=== PATIENT | male | born 1965 | race African-American/Black ===

== ENCOUNTER 2019-10-07 04:19 | Emergency (ER) | payer MEDICAID ==
[~2019-10-07] VITALS: Ht 188 cm; Wt 100.4 kg
[2019-10-07 05:34] VITALS: BP 163/101
[2019-10-07] MEDS ORDERED: ALBUTEROL SULF 2.5 MG/0.5ML(0.5%) NEB SOLN NEB ONE (06:00)
[2019-10-07] MEDS ORDERED: IPRATROPIUM BROM 0.5 MG/2.5ML INH SOL NEB ONE (06:00)
== END 2019-10-07 06:20 | disposition home or self-care (01) ==
LOC: ER 04:19
DX: J18.1 Lobar pneumonia, unspecified organism (principal); I10 Essential (primary) hypertension
CPT/HCPCS: 71045; 94640; 99283; J7644

== ENCOUNTER 2019-10-14 18:53 | Emergency (ER) | payer MEDICAID ==
[~2019-10-14] VITALS: Ht 188 cm; Wt 100.2 kg
[2019-10-14] MEDS ORDERED: SODIUM CHLORIDE 0.9% 1,000 ML IV ONE ×2 (20:15→22:30)
[2019-10-14 21:17] LABS: Basophils # (auto) 0.1 10 ^3/uL (0-0.2); Eosinophils # (auto) 0.1 10 ^3/uL (0-0.8); Monocytes # (auto) 0.9 10 ^3/uL (0-1.3)
[2019-10-14 21:18] LABS: Basophils % (auto) 0.7 % (0.0-2.0); Hematocrit 55.1 % (41.0-53.0); Hemoglobin 18.3 g/dL (13.5-17.5); Lymphocytes # (auto) 1.6 10 ^3/uL (0.4-5.4); Lymphocytes % (auto) 16.2 % (10.0-50.0); Mean Corpuscular Hemoglobin 31.9 pg (28.0-32.0); Mean Corpuscular Hgb Conc. 33.2 g/dL (32.0-36.0); Monocytes % (auto) 8.7 % (0.0-12.0); Neutrophils # (auto) 7.4 10 ^3/uL (1.6-8.6); Neutrophils % (auto) 73.4 % (37.0-80.0); Platelet Count (auto) 298 10^3/uL (140-450); Red Blood Cells 5.74 10^6/uL (4.5-5.90); Red Cell Distribution Width 13.9 % (11.8-14.3); White Blood Cell 10.1 10^3/uL (4.4-10.8)
[2019-10-14 21:32] LABS: INR 1.05 (0.9-1.15)
[2019-10-14 21:35] LABS: Anion Gap 7 (5-15); Blood Urea Nitrogen 20 mg/dL (7-18); Calcium 9.4 mg/dL (8.5-10.1); Carbon Dioxide 26 mmol/L (21-32); Chloride 107 mmol/L (98-107); Glucose 99 mg/dL (74-106); Potassium 3.3 mmol/L (3.5-5.1); Sodium 140 mmol/L (136-145)
[2019-10-14 21:36] LABS: Lactic Acid w/Reflex 2.4 mmol/L (0.4-2.0)
[2019-10-14 21:42] LABS: Alanine Aminotransferase 29 U/L (16-61); Alkaline Phosphatase 100 U/L (45-117); Aspartate Aminotransferase 16 U/L (15-37); BUN/Creatinine Ratio 12.4; Bilirubin, Total 0.6 mg/dL (0.2-1.0); CRP High Sensitivity 0.57 mg/dL (< 0.3); Creatine Kinase IFCC 189 U/L (39-308); GFR African American 58 mL/min; GFR Non-African American 48 mL/min; Total Protein 8.1 g/dL (6.4-8.2)
[2019-10-14 23:15] VITALS: BP 151/96
[2019-10-15] MEDS ORDERED: POTASSIUM CHL 20 Meq TABLET PO ONE (00:15)
== END 2019-10-15 00:39 | disposition home or self-care (01) ==
LOC: ER 18:53
DX: J18.9 Pneumonia, unspecified organism (principal); E86.0 Dehydration; J45.909 Unspecified asthma, uncomplicated
CPT/HCPCS: 36415; 71045; 80053; 82550; 83605; 84484; 85025; 85610; 85652; 86141; 87070; 87804; 87880; 93005; 96360; 96361; 99285; J7030; 87807

== ENCOUNTER 2020-01-22 15:03 | Inpatient (IN) | payer MEDICAID ==
[~2020-01-22] VITALS: Ht 188 cm; Wt 95.8 kg
[2020-01-22] MEDS ORDERED: DOXYCYCLINE 100 MG TAB/CAP PO ONE (16:45)
[2020-01-22] MEDS ORDERED: cefTRIAXone 1GM/50ML D5W 50 ML IV ONE (16:45)
[2020-01-22] MEDS ORDERED: DexAMETHasone SOD PHOS 10MG/1ML VIAL INJ IV ONE (16:45)
[2020-01-22] MEDS ORDERED: AZITHROMYCIN 500MG/ 250ML 250 ML IV ONE (17:00)
[2020-01-22 17:01] LABS: Eosinophils # (auto) 0.1 10 ^3/uL (0-0.8); Nucleated Red Blood Cells % 0.1 %
[2020-01-22 17:03] LABS: Basophils # (auto) 0 10 ^3/uL (0-0.2); Basophils % (auto) 0.7 % (0.0-2.0); Hemoglobin 19.2 g/dL (13.5-17.5); Lymphocytes # (auto) 0.9 10 ^3/uL (0.4-5.4); Lymphocytes % (auto) 13.9 % (10.0-50.0); Mean Corpuscular Hgb Conc. 33.3 g/dL (32.0-36.0); Mean Corpuscular Volume 96.4 fL (80.0-100.0); Monocytes % (auto) 14.5 % (0.0-12.0); Neutrophils # (auto) 4.7 10 ^3/uL (1.6-8.6); Neutrophils % (auto) 69.9 % (37.0-80.0); Platelet Count (auto) 322 10^3/uL (140-450); Red Cell Distribution Width 13.9 % (11.8-14.3); White Blood Cell 6.7 10^3/uL (4.4-10.8)
[2020-01-22 17:06] LABS: Hematocrit 57.8 % (41.0-53.0)
[2020-01-22 17:16] LABS: Alanine Aminotransferase 40 U/L (16-61); Albumin 2.7 g/dL (3.4-5.0); Anion Gap 5 (5-15); Aspartate Aminotransferase 31 U/L (15-37); BUN/Creatinine Ratio 16.2; Blood Urea Nitrogen 25 mg/dL (7-18); Calcium 8.7 mg/dL (8.5-10.1); Carbon Dioxide 27 mmol/L (21-32); Chloride 104 mmol/L (98-107); GFR African American 61 mL/min; GFR Non-African American 50 mL/min; Glucose 123 mg/dL (74-106); Magnesium 2.9 mg/dL (1.6-2.6); Potassium 4.1 mmol/L (3.5-5.1); Sodium 136 mmol/L (136-145)
[2020-01-22 17:19] LABS: Alkaline Phosphatase 98 U/L (45-117); Bilirubin, Total 0.5 mg/dL (0.2-1.0)
[2020-01-22 17:26] LABS: INR 1.2 (0.9-1.15); Partial Thromboplastin Time 28.8 sec (23.64-32.05)
[2020-01-22 17:46] LABS: CRP High Sensitivity 10.9 mg/dL (< 0.3)
[2020-01-22] MEDS ORDERED: SODIUM CHLORIDE 0.9% 1,000 ML IV SCH (17:53)
[2020-01-22] MEDS ORDERED: traMADol HCL 50 MG TAB PO PRN (18:00)
[2020-01-22] MEDS ORDERED: MORPHINE SULF INJ 2 MG/ML SYRINGE 1ML IV PRN (18:00)
[2020-01-22] MEDS ORDERED: TEMAZEPAM 15 MG CAP PO PRN (18:00)
[2020-01-22] MEDS ORDERED: methylPREDNISolone SOD SUCC 40 MG/ML VL IV SCH (18:00)
[2020-01-22] MEDS ORDERED: PROMETHAZINE HCL 25 MG/ML 1ML IV PRN (18:00)
[2020-01-22] MEDS ORDERED: NITROGLYCERIN 0.4 MG SL TAB SL PRN (18:00)
[2020-01-22] MEDS ORDERED: ACETAMINOPHEN 500 MG TAB PO PRN (18:00)
[2020-01-22] MEDS ORDERED: LACTULOSE 20Gm/30ML SOLN PO PRN (18:00)
[2020-01-22] MEDS ORDERED: levoFLOXacin 500MG 100 ML IV ONE (18:30)
[2020-01-22 19:25] VITALS: BP 137/80
[2020-01-22 21:55] VITALS: BP 131/83
[2020-01-22] MEDS: ALBUTEROL SULF HFA 90MCG INH 200DOSE IN SCH ×2 (21:59→22:00)
[2020-01-22] MEDS: DexAMETHasone SOD PHOS 4 MG/1ML SDV INJ IV SCH (22:09)
[2020-01-22] MEDS: ENOXAPARIN SOD 80 MG/0.8ML SYRINGE SC SCH (22:09)
[2020-01-22] MEDS: CLINDAMYCIN 600MG IV 50 ML IV SCH (22:09)
[2020-01-22 23:23] VITALS: BP 130/87
[2020-01-23 02:40] VITALS: BP 153/91
[2020-01-23] MEDS: ALBUTEROL SULF HFA 90MCG INH 200DOSE IN SCH ×3 (06:00→22:10)
[2020-01-23] MEDS: CLINDAMYCIN 600MG IV 50 ML IV SCH ×2 (06:10→14:20)
[2020-01-23 06:13] VITALS: BP 135/91
[2020-01-23 06:48] LABS: Urine Bacteria FEW /hpf (None Seen); Urine Blood Negative /uL (Negative); Urine Mucus FEW (None Seen); Urine WBC 1 /hpf (0 - 3)
[2020-01-23 07:19] LABS: Basophils # (auto) 0 10 ^3/uL (0-0.2); Eosinophils # (auto) 0 10 ^3/uL (0-0.8); Eosinophils % (auto) 0.1 % (0.0-7.0); Lymphocytes # (auto) 0.6 10 ^3/uL (0.4-5.4); White Blood Cell 5.9 10^3/uL (4.4-10.8)
[2020-01-23 07:22] LABS: Basophils % (auto) 0.3 % (0.0-2.0); Hematocrit 55.8 % (41.0-53.0); Hemoglobin 18.7 g/dL (13.5-17.5); Lymphocytes % (auto) 10.7 % (10.0-50.0); Mean Corpuscular Hemoglobin 32.1 pg (28.0-32.0); Mean Corpuscular Hgb Conc. 33.5 g/dL (32.0-36.0); Mean Corpuscular Volume 95.9 fL (80.0-100.0); Monocytes # (auto) 0.2 10 ^3/uL (0-1.3); Monocytes % (auto) 3.2 % (0.0-12.0); Neutrophils # (auto) 5.1 10 ^3/uL (1.6-8.6); Neutrophils % (auto) 85.7 % (37.0-80.0); Nucleated Red Blood Cells % 0.1 %; Platelet Count (auto) 366 10^3/uL (140-450); Red Blood Cells 5.82 10^6/uL (4.5-5.90); Red Cell Distribution Width 13.2 % (11.8-14.3)
[2020-01-23 07:36] LABS: Potassium 4.4 mmol/L (3.5-5.1)
[2020-01-23 07:48] LABS: Albumin 2.7 g/dL (3.4-5.0); BUN/Creatinine Ratio 20.1; Bilirubin, Total 0.5 mg/dL (0.2-1.0); Calcium 9.1 mg/dL (8.5-10.1); Total Protein 7.8 g/dL (6.4-8.2)
[2020-01-23 09:45] VITALS: BP_SYST 134
[2020-01-23] MEDS: ENOXAPARIN SOD 80 MG/0.8ML SYRINGE SC SCH ×2 (10:35→22:38)
[2020-01-23] MEDS: ASCORBIC ACID 1,000 MG TAB PO SCH (10:35)
[2020-01-23] MEDS: ZINC SULFATE 220mg CAP or TAB PO SCH (10:36)
[2020-01-23] MEDS: CHOLECALCIFEROL (VITD3) 1,000IU=25mCg TAB PO SCH (10:36)
[2020-01-23] MEDS: levoFLOXacin 500MG 100 ML IV SCH (10:36)
[2020-01-23] MEDS: DexAMETHasone SOD PHOS 4 MG/1ML SDV INJ IV SCH (10:37)
[2020-01-23] MEDS ORDERED: SODIUM CHLORIDE 0.9% 1,000 ML IV SCH (10:45)
[2020-01-23 13:20] VITALS: BP 134/84
[2020-01-23 15:10] VITALS: BP 144/80
[2020-01-23 16:22] VITALS: BP 127/50
[2020-01-23] MEDS: methylPREDNISolone SOD SUCC 40 MG/ML VL IV SCH (22:38)
[2020-01-24] MEDS: ALBUTEROL SULF HFA 90MCG INH 200DOSE IN SCH (06:10)
[2020-01-24 09:43] LABS: Basophils # (auto) 0.1 10 ^3/uL (0-0.2); Basophils % (auto) 0.5 % (0.0-2.0); Eosinophils # (auto) 0 10 ^3/uL (0-0.8); Hematocrit 50.2 % (41.0-53.0); Hemoglobin 16.6 g/dL (13.5-17.5); Lymphocytes # (auto) 0.7 10 ^3/uL (0.4-5.4); Lymphocytes % (auto) 4.6 % (10.0-50.0); Mean Corpuscular Hemoglobin 31.7 pg (28.0-32.0); Mean Corpuscular Hgb Conc. 33.1 g/dL (32.0-36.0); Mean Corpuscular Volume 95.8 fL (80.0-100.0); Monocytes # (auto) 0.4 10 ^3/uL (0-1.3); Monocytes % (auto) 2.7 % (0.0-12.0); Neutrophils # (auto) 14.8 10 ^3/uL (1.6-8.6); Neutrophils % (auto) 92.2 % (37.0-80.0); Platelet Count (auto) 375 10^3/uL (140-450); Red Blood Cells 5.24 10^6/uL (4.5-5.90); Red Cell Distribution Width 13.5 % (11.8-14.3); White Blood Cell 16.1 10^3/uL (4.4-10.8)
[2020-01-24 09:52] LABS: Albumin 2.4 g/dL (3.4-5.0); Calcium 8.8 mg/dL (8.5-10.1); Potassium 4.6 mmol/L (3.5-5.1)
[2020-01-24 09:55] LABS: BUN/Creatinine Ratio 20.7; Bilirubin, Total 0.4 mg/dL (0.2-1.0); Total Protein 6.7 g/dL (6.4-8.2)
[2020-01-24] MEDS: CHOLECALCIFEROL (VITD3) 1,000IU=25mCg TAB PO SCH (09:57)
[2020-01-24] MEDS: levoFLOXacin 500MG 100 ML IV SCH (09:57)
[2020-01-24] MEDS: methylPREDNISolone SOD SUCC 40 MG/ML VL IV SCH ×2 (09:57→22:17)
[2020-01-24] MEDS: ASCORBIC ACID 1,000 MG TAB PO SCH (09:57)
[2020-01-24] MEDS: ENOXAPARIN SOD 80 MG/0.8ML SYRINGE SC SCH ×2 (09:57→22:17)
[2020-01-24] MEDS: ZINC SULFATE 220mg CAP or TAB PO SCH (09:57)
[2020-01-24 15:07] LABS: Amphetamine Screen, Urine POSITIVE (NEGATIVE); Barbiturate Scree,Urine NEGATIVE (NEGATIVE); Benzodiazephine Screen, Urine NEGATIVE (NEGATIVE); Cannabinoid Screen, Urine NEGATIVE (NEGATIVE); Cocaine Screen, Urine NEGATIVE (NEGATIVE); Opiate Scree,Urine NEGATIVE (NEGATIVE); Phencyclidine Screen, Urine NEGATIVE (NEGATIVE)
[2020-01-24 15:35] LABS: Alcohol, Urine < 3.0 mg/dL (0-10)
[2020-01-24 23:53] VITALS: BP 125/78
[2020-01-25] MEDS ORDERED: IPRAAER6 IN (01:24)
[2020-01-25 07:50] LABS: Basophils # (auto) 0 10 ^3/uL (0-0.2); Basophils % (auto) 0.3 % (0.0-2.0); Eosinophils # (auto) 0.1 10 ^3/uL (0-0.8); Eosinophils % (auto) 0.4 % (0.0-7.0); Hematocrit 51.5 % (41.0-53.0); Hemoglobin 17.1 g/dL (13.5-17.5); Lymphocytes # (auto) 0.6 10 ^3/uL (0.4-5.4); Lymphocytes % (auto) 3.8 % (10.0-50.0); Mean Corpuscular Hemoglobin 32.3 pg (28.0-32.0); Mean Corpuscular Hgb Conc. 33.3 g/dL (32.0-36.0); Monocytes # (auto) 0.7 10 ^3/uL (0-1.3); Monocytes % (auto) 4.4 % (0.0-12.0); Neutrophils # (auto) 14.2 10 ^3/uL (1.6-8.6); Neutrophils % (auto) 91.1 % (37.0-80.0); Platelet Count (auto) 361 10^3/uL (140-450); Red Blood Cells 5.31 10^6/uL (4.5-5.90); Red Cell Distribution Width 13.7 % (11.8-14.3); White Blood Cell 15.6 10^3/uL (4.4-10.8)
[2020-01-25 08:08] LABS: BUN/Creatinine Ratio 24.2; Calcium 8.6 mg/dL (8.5-10.1); Potassium 5.1 mmol/L (3.5-5.1)
[2020-01-25] MEDS: ZINC SULFATE 220mg CAP or TAB PO SCH (09:36)
[2020-01-25] MEDS: ASCORBIC ACID 1,000 MG TAB PO SCH (09:36)
[2020-01-25] MEDS: methylPREDNISolone SOD SUCC 40 MG/ML VL IV SCH ×2 (10:00→22:00)
[2020-01-25] MEDS: ENOXAPARIN SOD 80 MG/0.8ML SYRINGE SC SCH ×2 (10:00→22:00)
[2020-01-25] MEDS: levoFLOXacin 500MG 100 ML IV SCH (10:00)
[2020-01-25] MEDS: NICOTINE 14 MG/24HR TOPICAL PATCH TD SCH (10:00)
[2020-01-25] MEDS: CHOLECALCIFEROL (VITD3) 1,000IU=25mCg TAB PO SCH (10:00)
[2020-01-25 16:55] VITALS: BP 157/95
[2020-01-25 17:00] VITALS: BP 157/95
[2020-01-25 22:09] VITALS: BP 151/97
[2020-01-26 05:30] VITALS: BP 145/81
[2020-01-26 09:00] VITALS: BP 140/85
[2020-01-26] MEDS: CHOLECALCIFEROL (VITD3) 1,000IU=25mCg TAB PO SCH (10:00)
[2020-01-26] MEDS: ZINC SULFATE 220mg CAP or TAB PO SCH (10:00)
[2020-01-26] MEDS: ASCORBIC ACID 1,000 MG TAB PO SCH (10:00)
[2020-01-26] MEDS: levoFLOXacin 500MG 100 ML IV SCH (11:48)
[2020-01-26] MEDS: methylPREDNISolone SOD SUCC 40 MG/ML VL IV SCH ×2 (11:49→22:30)
[2020-01-26] MEDS: ENOXAPARIN SOD 80 MG/0.8ML SYRINGE SC SCH ×2 (11:51→22:31)
[2020-01-26] MEDS: NICOTINE 14 MG/24HR TOPICAL PATCH TD SCH (11:51)
[2020-01-26 13:00] VITALS: BP 142/91
[2020-01-26 14:11] LABS: Hemoglobin 18.6 g/dL (13.5-17.5); Mean Corpuscular Volume 97.1 fL (80.0-100.0)
[2020-01-26 14:13] LABS: Mean Corpuscular Hemoglobin 31.2 pg (28.0-32.0); Mean Corpuscular Hgb Conc. 32.1 g/dL (32.0-36.0); Platelet Count (auto) 453 10^3/uL (140-450); Red Blood Cells 5.95 10^6/uL (4.5-5.90)
[2020-01-26 14:14] LABS: Hematocrit 57.8 % (41.0-53.0)
[2020-01-26 14:16] LABS: Band Neutrophils % (manual) 0; Basophils % (manual) 0 (0.0-2.0); Blast Cells 0; Eosinophils % (manual) 0 (0-7); Metamyelocytes % 0; Myelocytes % 0; Promyelocytes % 0; Reactive Lymphocytes 0
[2020-01-26 14:28] LABS: Lymphocytes % (manual) 3 (10.0-50.0); Monocytes % (manual) 3 (0-12)
[2020-01-26 14:51] LABS: BUN/Creatinine Ratio 19.1; Potassium 4.6 mmol/L (3.5-5.1)
[2020-01-26 14:52] LABS: Albumin 2.8 g/dL (3.4-5.0); Bilirubin, Total 0.3 mg/dL (0.2-1.0); Calcium 9.1 mg/dL (8.5-10.1); Total Protein 7.4 g/dL (6.4-8.2)
[2020-01-26 17:00] VITALS: BP 98/76
[2020-01-26 22:00] VITALS: BP 111/76
[2020-01-27 05:35] VITALS: BP 119/69
[2020-01-27 06:50] LABS: Hemoglobin 17.5 g/dL (13.5-17.5); Red Cell Distribution Width 13.7 % (11.8-14.3)
[2020-01-27 06:52] LABS: Hematocrit 52.4 % (41.0-53.0); Mean Corpuscular Hemoglobin 31.8 pg (28.0-32.0); Mean Corpuscular Hgb Conc. 33.5 g/dL (32.0-36.0); Platelet Count (auto) 450 10^3/uL (140-450); Red Blood Cells 5.51 10^6/uL (4.5-5.90); White Blood Cell 21.2 10^3/uL (4.4-10.8)
[2020-01-27 06:55] LABS: Band Neutrophils % (manual) 0; Basophils % (manual) 0 (0.0-2.0); Blast Cells 0; Eosinophils % (manual) 0 (0-7); Metamyelocytes % 0; Myelocytes % 0; Promyelocytes % 0; Reactive Lymphocytes 0
[2020-01-27 07:02] LABS: Potassium 4.2 mmol/L (3.5-5.1)
[2020-01-27 07:18] LABS: BUN/Creatinine Ratio 21.6; Calcium 8.9 mg/dL (8.5-10.1)
[2020-01-27 07:52] LABS: Lymphocytes % (manual) 12 (10.0-50.0); Monocytes % (manual) 4 (0-12)
[2020-01-27] MEDS ORDERED: VANCOMYCIN PER PHARMACY 0 MG IV SCH (08:45)
[2020-01-27 09:30] VITALS: BP 126/79
[2020-01-27] MEDS: ASCORBIC ACID 1,000 MG TAB PO SCH (10:00)
[2020-01-27] MEDS: ZINC SULFATE 220mg CAP or TAB PO SCH (10:00)
[2020-01-27] MEDS: levoFLOXacin 500MG 100 ML IV SCH ×2 (10:00→10:55)
[2020-01-27] MEDS: methylPREDNISolone SOD SUCC 40 MG/ML VL IV SCH ×4 (10:00→22:20)
[2020-01-27] MEDS: NICOTINE 14 MG/24HR TOPICAL PATCH TD SCH (10:56)
[2020-01-27] MEDS: ENOXAPARIN SOD 80 MG/0.8ML SYRINGE SC SCH ×2 (10:56→22:20)
[2020-01-27] MEDS: CHOLECALCIFEROL (VITD3) 1,000IU=25mCg TAB PO SCH (10:56)
[2020-01-27] MEDS ORDERED: VANCOMYCIN 1GM/250ML 250 ML IV SCH (11:00)
[2020-01-27] MEDS: VANCOMYCIN 1GM/250ML 250 ML IV SCH (16:30)
[2020-01-27 16:55] VITALS: BP 114/70
[2020-01-27 22:00] VITALS: BP 116/76
[2020-01-28 05:00] VITALS: BP 102/59
[2020-01-28] MEDS: VANCOMYCIN 1GM/250ML 250 ML IV SCH ×2 (05:19→17:39)
[2020-01-28] MEDS: ZINC SULFATE 220mg CAP or TAB PO SCH (07:29)
[2020-01-28] MEDS: ASCORBIC ACID 500 MG TAB PO SCH (07:30)
[2020-01-28 09:38] VITALS: BP 108/76
[2020-01-28] MEDS: methylPREDNISolone SOD SUCC 40 MG/ML VL IV SCH ×2 (11:05→22:38)
[2020-01-28] MEDS: ENOXAPARIN SOD 80 MG/0.8ML SYRINGE SC SCH ×2 (11:06→22:38)
[2020-01-28] MEDS: CHOLECALCIFEROL (VITD3) 1,000IU=25mCg TAB PO SCH (11:06)
[2020-01-28] MEDS: NICOTINE 14 MG/24HR TOPICAL PATCH TD SCH (11:07)
[2020-01-28 11:48] LABS: Hemoglobin 18.3 g/dL (13.5-17.5); Mean Corpuscular Hemoglobin 31.1 pg (28.0-32.0); Mean Corpuscular Hgb Conc. 32.4 g/dL (32.0-36.0); Mean Corpuscular Volume 96.1 fL (80.0-100.0); Platelet Count (auto) 466 10^3/uL (140-450); Red Blood Cells 5.88 10^6/uL (4.5-5.90); Red Cell Distribution Width 13.7 % (11.8-14.3); White Blood Cell 21.5 10^3/uL (4.4-10.8)
[2020-01-28 11:49] LABS: Band Neutrophils % (manual) 0; Basophils % (manual) 0 (0.0-2.0); Blast Cells 0; Eosinophils % (manual) 0 (0-7); Hematocrit 56.4 % (41.0-53.0); Metamyelocytes % 0; Myelocytes % 0; Promyelocytes % 0; Reactive Lymphocytes 0
[2020-01-28 11:59] LABS: Calcium 9.2 mg/dL (8.5-10.1); Potassium 4.5 mmol/L (3.5-5.1)
[2020-01-28 12:09] LABS: Lymphocytes % (manual) 7 (10.0-50.0); Monocytes % (manual) 3 (0-12)
[2020-01-28 13:00] VITALS: BP 114/65
[2020-01-28 16:29] VITALS: BP 115/69
[2020-01-28 22:10] VITALS: BP 159/75
[2020-01-29] MEDS: VANCOMYCIN 1GM/250ML 250 ML IV SCH ×2 (04:37→17:44)
[2020-01-29 05:26] VITALS: BP 123/75
[2020-01-29 06:26] LABS: Hematocrit 52.5 % (41.0-53.0); Hemoglobin 17.3 g/dL (13.5-17.5); Mean Corpuscular Hemoglobin 31.8 pg (28.0-32.0); Mean Corpuscular Hgb Conc. 32.9 g/dL (32.0-36.0); Mean Corpuscular Volume 96.9 fL (80.0-100.0); Platelet Count (auto) 445 10^3/uL (140-450); Red Blood Cells 5.42 10^6/uL (4.5-5.90); White Blood Cell 24.9 10^3/uL (4.4-10.8)
[2020-01-29 06:34] LABS: Basophils % (manual) 0 (0.0-2.0); Blast Cells 0; Eosinophils % (manual) 0 (0-7); Metamyelocytes % 0; Myelocytes % 0; Promyelocytes % 0; Reactive Lymphocytes 0
[2020-01-29 06:44] LABS: Band Neutrophils % (manual) 1; Lymphocytes % (manual) 3 (10.0-50.0); Monocytes % (manual) 5 (0-12)
[2020-01-29 08:50] VITALS: BP 140/94
[2020-01-29] MEDS: levoFLOXacin 500MG 100 ML IV SCH (09:37)
[2020-01-29] MEDS: ENOXAPARIN SOD 80 MG/0.8ML SYRINGE SC SCH ×2 (09:37→23:15)
[2020-01-29] MEDS: methylPREDNISolone SOD SUCC 40 MG/ML VL IV SCH ×2 (09:38→23:15)
[2020-01-29] MEDS: ASCORBIC ACID 500 MG TAB PO SCH (09:39)
[2020-01-29] MEDS: NICOTINE 14 MG/24HR TOPICAL PATCH TD SCH (09:39)
[2020-01-29] MEDS: CHOLECALCIFEROL (VITD3) 1,000IU=25mCg TAB PO SCH (09:40)
[2020-01-29] MEDS: ZINC SULFATE 220mg CAP or TAB PO SCH (09:40)
[2020-01-29 11:07] LABS: Albumin 2.7 g/dL (3.4-5.0); Calcium 8.7 mg/dL (8.5-10.1); Potassium 4.9 mmol/L (3.5-5.1)
[2020-01-29 11:10] LABS: BUN/Creatinine Ratio 16.5; Bilirubin, Total 0.4 mg/dL (0.2-1.0); Total Protein 6.6 g/dL (6.4-8.2)
[2020-01-29 13:00] VITALS: BP 126/99
[2020-01-29 16:48] VITALS: BP 137/74
[2020-01-29 22:14] VITALS: BP 142/82
[2020-01-30] MEDS: VANCOMYCIN 1GM/250ML 250 ML IV SCH ×2 (04:36→16:39)
[2020-01-30 05:34] VITALS: BP 110/70
[2020-01-30 09:13] VITALS: BP 143/86
[2020-01-30] MEDS: ENOXAPARIN SOD 80 MG/0.8ML SYRINGE SC SCH ×2 (10:00→21:18)
[2020-01-30] MEDS: ASCORBIC ACID 500 MG TAB PO SCH (10:00)
[2020-01-30] MEDS: methylPREDNISolone SOD SUCC 40 MG/ML VL IV SCH ×2 (10:00→21:18)
[2020-01-30] MEDS: levoFLOXacin 500MG 100 ML IV SCH (10:00)
[2020-01-30] MEDS: ZINC SULFATE 220mg CAP or TAB PO SCH (10:00)
[2020-01-30] MEDS: CHOLECALCIFEROL (VITD3) 1,000IU=25mCg TAB PO SCH (10:00)
[2020-01-30] MEDS: NICOTINE 14 MG/24HR TOPICAL PATCH TD SCH (10:00)
[2020-01-30 12:39] VITALS: BP 147/95
[2020-01-30] MEDS ORDERED: FLUCONAZOLE 200MG/100ML 100 ML IV ONE (13:30)
[2020-01-30 16:58] VITALS: BP 135/91
[2020-01-30 19:18] LABS: Hemoglobin 19.1 g/dL (13.5-17.5); Mean Corpuscular Hemoglobin 31.7 pg (28.0-32.0); Mean Corpuscular Volume 96.1 fL (80.0-100.0); Red Blood Cells 6.04 10^6/uL (4.5-5.90)
[2020-01-30 19:19] LABS: Platelet Count (auto) 513 10^3/uL (140-450); Red Cell Distribution Width 14.2 % (11.8-14.3); White Blood Cell 24.8 10^3/uL (4.4-10.8)
[2020-01-30 19:26] LABS: Calcium 9.5 mg/dL (8.5-10.1); Potassium 4.3 mmol/L (3.5-5.1)
[2020-01-30 19:28] LABS: BUN/Creatinine Ratio 18.8
[2020-01-30 19:45] LABS: Band Neutrophils % (manual) 0; Basophils % (manual) 0 (0.0-2.0); Blast Cells 0; Eosinophils % (manual) 0 (0-7); Metamyelocytes % 0; Myelocytes % 0; Promyelocytes % 0; Reactive Lymphocytes 0
[2020-01-30 21:04] LABS: Lymphocytes % (manual) 9 (10.0-50.0); Monocytes % (manual) 2 (0-12)
[2020-01-31] MEDS: VANCOMYCIN 1GM/250ML 250 ML IV SCH ×2 (04:29→18:10)
[2020-01-31 04:38] VITALS: BP 137/88
[2020-01-31 09:00] VITALS: BP 144/80
[2020-01-31] MEDS: ZINC SULFATE 220mg CAP or TAB PO SCH (10:00)
[2020-01-31] MEDS: ASCORBIC ACID 500 MG TAB PO SCH (10:00)
[2020-01-31] MEDS: NICOTINE 14 MG/24HR TOPICAL PATCH TD SCH (10:00)
[2020-01-31] MEDS: levoFLOXacin 500MG 100 ML IV SCH (10:08)
[2020-01-31] MEDS: FLUCONAZOLE 200MG/100ML 100 ML IV SCH (10:08)
[2020-01-31] MEDS: methylPREDNISolone SOD SUCC 40 MG/ML VL IV SCH ×2 (10:08→21:52)
[2020-01-31] MEDS: ENOXAPARIN SOD 80 MG/0.8ML SYRINGE SC SCH ×2 (10:08→21:52)
[2020-01-31] MEDS: CHOLECALCIFEROL (VITD3) 1,000IU=25mCg TAB PO SCH (10:09)
[2020-01-31 12:21] LABS: Hemoglobin 18.8 g/dL (13.5-17.5)
[2020-01-31 12:23] LABS: Mean Corpuscular Hemoglobin 31.4 pg (28.0-32.0); Mean Corpuscular Hgb Conc. 32.6 g/dL (32.0-36.0); Mean Corpuscular Volume 96.3 fL (80.0-100.0); Platelet Count (auto) 440 10^3/uL (140-450); Red Blood Cells 5.97 10^6/uL (4.5-5.90); Red Cell Distribution Width 14.2 % (11.8-14.3); White Blood Cell 24.3 10^3/uL (4.4-10.8)
[2020-01-31 12:31] LABS: Band Neutrophils % (manual) 0; Basophils % (manual) 0 (0.0-2.0); Blast Cells 0; Eosinophils % (manual) 0 (0-7); Hematocrit 57.5 % (41.0-53.0); Metamyelocytes % 0; Myelocytes % 0; Promyelocytes % 0; Reactive Lymphocytes 0
[2020-01-31 12:36] LABS: BUN/Creatinine Ratio 20.7; Calcium 9.7 mg/dL (8.5-10.1); Potassium 5.3 mmol/L (3.5-5.1)
[2020-01-31 13:00] VITALS: BP 134/82
[2020-01-31 13:15] LABS: Lymphocytes % (manual) 8 (10.0-50.0); Monocytes % (manual) 7 (0-12)
[2020-01-31 17:00] VITALS: BP 133/80
[2020-01-31 22:00] VITALS: BP 127/72
[2020-02-01 05:00] VITALS: BP 134/76
[2020-02-01] MEDS: VANCOMYCIN 1GM/250ML 250 ML IV SCH (05:47)
[2020-02-01 07:25] LABS: Hematocrit 55.5 % (41.0-53.0); Hemoglobin 18.1 g/dL (13.5-17.5); Mean Corpuscular Hemoglobin 31.8 pg (28.0-32.0); Mean Corpuscular Hgb Conc. 32.7 g/dL (32.0-36.0); Mean Corpuscular Volume 97.5 fL (80.0-100.0); Platelet Count (auto) 424 10^3/uL (140-450); Red Blood Cells 5.69 10^6/uL (4.5-5.90); Red Cell Distribution Width 14.4 % (11.8-14.3); White Blood Cell 23.4 10^3/uL (4.4-10.8)
[2020-02-01 07:32] LABS: Basophils % (manual) 0 (0.0-2.0); Blast Cells 0; Eosinophils % (manual) 0 (0-7); Metamyelocytes % 0; Myelocytes % 0; Promyelocytes % 0; Reactive Lymphocytes 0
[2020-02-01 08:04] LABS: Band Neutrophils % (manual) 1; Lymphocytes % (manual) 5 (10.0-50.0); Monocytes % (manual) 5 (0-12)
[2020-02-01 09:00] VITALS: BP 137/82
[2020-02-01] MEDS: ASCORBIC ACID 500 MG TAB PO SCH (10:00)
[2020-02-01] MEDS: NICOTINE 14 MG/24HR TOPICAL PATCH TD SCH (10:00)
[2020-02-01] MEDS: ZINC SULFATE 220mg CAP or TAB PO SCH (10:00)
[2020-02-01] MEDS: FLUCONAZOLE 200MG/100ML 100 ML IV SCH (10:06)
[2020-02-01] MEDS: levoFLOXacin 500MG 100 ML IV SCH (10:06)
[2020-02-01] MEDS: methylPREDNISolone SOD SUCC 40 MG/ML VL IV SCH ×2 (10:07→22:14)
[2020-02-01] MEDS: CHOLECALCIFEROL (VITD3) 1,000IU=25mCg TAB PO SCH (10:07)
[2020-02-01] MEDS: ENOXAPARIN SOD 80 MG/0.8ML SYRINGE SC SCH ×2 (10:07→21:54)
[2020-02-01 13:00] VITALS: BP_SYST 94
[2020-02-01] MEDS ORDERED: VANCOMYCIN 1GM/250ML 250 ML IV SCH ×2 (15:00→23:00)
[2020-02-01 18:26] VITALS: BP 147/82
[2020-02-01 22:07] VITALS: BP 141/91
[2020-02-02 05:22] VITALS: BP 145/101
[2020-02-02 07:01] LABS: Alanine Aminotransferase 94 U/L (16-61); Albumin 2.9 g/dL (3.4-5.0); Anion Gap 11 (5-15); BUN/Creatinine Ratio 21.1; Blood Urea Nitrogen 38 mg/dL (7-18); Calcium 8.7 mg/dL (8.5-10.1); Carbon Dioxide 22 mmol/L (21-32); Chloride 105 mmol/L (98-107); GFR African American 51 mL/min; GFR Non-African American 42 mL/min; Glucose 137 mg/dL (74-106); Potassium 4.3 mmol/L (3.5-5.1); Sodium 138 mmol/L (136-145)
[2020-02-02 07:03] LABS: Alkaline Phosphatase 77 U/L (45-117); Aspartate Aminotransferase 27 U/L (15-37); Bilirubin, Total 0.4 mg/dL (0.2-1.0); Total Protein 6.7 g/dL (6.4-8.2)
[2020-02-02 07:09] LABS: Basophils # (auto) 0.1 10 ^3/uL (0-0.2); Basophils % (auto) 0.3 % (0.0-2.0); Eosinophils # (auto) 0 10 ^3/uL (0-0.8); Hematocrit 55.2 % (41.0-53.0); Hemoglobin 18.2 g/dL (13.5-17.5); Lymphocytes # (auto) 0.8 10 ^3/uL (0.4-5.4); Lymphocytes % (auto) 3.9 % (10.0-50.0); Mean Corpuscular Hemoglobin 31.7 pg (28.0-32.0); Mean Corpuscular Hgb Conc. 32.9 g/dL (32.0-36.0); Mean Corpuscular Volume 96.4 fL (80.0-100.0); Monocytes # (auto) 0.8 10 ^3/uL (0-1.3); Monocytes % (auto) 3.8 % (0.0-12.0); Neutrophils # (auto) 18.4 10 ^3/uL (1.6-8.6); Platelet Count (auto) 379 10^3/uL (140-450); Red Blood Cells 5.73 10^6/uL (4.5-5.90); Red Cell Distribution Width 14.2 % (11.8-14.3)
[2020-02-02 09:00] VITALS: BP 134/85
[2020-02-02] MEDS: ASCORBIC ACID 500 MG TAB PO SCH (09:47)
[2020-02-02] MEDS: NICOTINE 14 MG/24HR TOPICAL PATCH TD SCH (09:48)
[2020-02-02] MEDS: ZINC SULFATE 220mg CAP or TAB PO SCH (09:48)
[2020-02-02] MEDS: ENOXAPARIN SOD 80 MG/0.8ML SYRINGE SC SCH (10:00)
[2020-02-02] MEDS ORDERED: METOPROLOL TARTRATE 25 MG TAB PO SCH (10:00)
[2020-02-02] MEDS: FLUCONAZOLE 200MG/100ML 100 ML IV SCH (10:14)
[2020-02-02] MEDS: levoFLOXacin 500MG 100 ML IV SCH (10:14)
[2020-02-02] MEDS: methylPREDNISolone SOD SUCC 40 MG/ML VL IV SCH (10:15)
[2020-02-02] MEDS: CHOLECALCIFEROL (VITD3) 1,000IU=25mCg TAB PO SCH (10:15)
[2020-02-02 13:00] VITALS: BP 135/84
[2020-02-02] MEDS ORDERED: VANCOMYCIN 1GM/250ML 250 ML IV SCH (18:00)
== END 2020-02-02 19:14 | disposition home health service (06) | DRG 139 ==
LOC: ER 15:03 → TELE 15:04 → TELE-WESTW 01-25 17:03
PROVIDERS: ADMIT Internal Medicine; ATTEND Internal Medicine
PROC: 5A09357 Assistance with Respiratory Ventilation, Less than 24 Consecutive Hours, Continuous Positive Airway Pressure (ICD-10-PCS; principal; 2020-01-23)
PROC: 5A09357 Assistance with Respiratory Ventilation, Less than 24 Consecutive Hours, Continuous Positive Airway Pressure (ICD-10-PCS; 2020-01-24)
DX: J18.1 Lobar pneumonia, unspecified organism (principal); J96.01 Acute respiratory failure with hypoxia; I10 Essential (primary) hypertension; E86.0 Dehydration; J98.11 Atelectasis; F17.200 Nicotine dependence, unspecified, uncomplicated; J44.9 Chronic obstructive pulmonary disease, unspecified; F15.10 Other stimulant abuse, uncomplicated; N17.9 Acute kidney failure, unspecified; E44.0 Moderate protein-calorie malnutrition; E66.01 Morbid (severe) obesity due to excess calories; Z68.27 Body mass index [BMI] 27.0-27.9, adult; Z71.6 Tobacco abuse counseling; Z20.828 Contact with and (suspected) exposure to other viral communicable diseases
CPT/HCPCS: 36415; 36600; 71045; 71046; 71250; 80048; 80053; 80202; 80307; 81001; 82728; 82805; 83036; 83615; 83735; 83880; 84439; 84443; 84484; 85007; 85025; 85027; 85610; 85730; 86141; 86703; 86738; 87040; 87070; 87081; 87205; 87278; 93005; 94640; 94660; 96365; 96375; 99291; G0378; J0696; J1100; J1450; J1956; J3490

== ENCOUNTER 2020-02-04 00:54 | Inpatient (IN) | payer MEDICAID ==
[~2020-02-04] VITALS: Ht 185.4 cm; Wt 96.0 kg
[2020-02-04] VITALS (9 sets, daily range): BP systolic 97–144; BP diastolic 54–82
[~2020-02-04 00:54] MED LIST: IPRAAER6 IN
[2020-02-04] MEDS ORDERED: IPRATROPIUM BROM 0.5 MG/2.5ML INH SOL NEB ONE (01:15)
[2020-02-04] MEDS ORDERED: ALBUTEROL SULF 2.5 MG/0.5ML(0.5%) NEB SOLN NEB SCH (01:15)
[2020-02-04] MEDS ORDERED: levoFLOXacin 750MG 150 ML IV ONE (01:45)
[2020-02-04 02:54] LABS: Lactic Acid w/Reflex 2.4 mmol/L (0.4-2.0)
[2020-02-04 03:21] LABS: Hematocrit 53.9 % (41.0-53.0); Red Cell Distribution Width 14.3 % (11.8-14.3); White Blood Cell 17.5 10^3/uL (4.4-10.8)
[2020-02-04 03:22] LABS: Hemoglobin 17.5 g/dL (13.5-17.5); Mean Corpuscular Hemoglobin 31.3 pg (28.0-32.0); Mean Corpuscular Hgb Conc. 32.4 g/dL (32.0-36.0); Mean Corpuscular Volume 96.7 fL (80.0-100.0); Platelet Count (auto) 334 10^3/uL (140-450); Red Blood Cells 5.58 10^6/uL (4.5-5.90)
[2020-02-04 03:31] LABS: Basophils % (manual) 0 (0.0-2.0); Blast Cells 0; Eosinophils % (manual) 0 (0-7); Metamyelocytes % 0; Myelocytes % 0; Promyelocytes % 0; Reactive Lymphocytes 0
[2020-02-04 03:43] LABS: Albumin 2.4 g/dL (3.4-5.0); Anion Gap 9 (5-15); BUN/Creatinine Ratio 19.9; Blood Urea Nitrogen 30 mg/dL (7-18); Carbon Dioxide 23 mmol/L (21-32); Chloride 107 mmol/L (98-107); GFR African American 62 mL/min; GFR Non-African American 51 mL/min; Glucose 106 mg/dL (74-106); Potassium 4.1 mmol/L (3.5-5.1); Sodium 139 mmol/L (136-145)
[2020-02-04 03:48] LABS: Alanine Aminotransferase 196 U/L (16-61); Alkaline Phosphatase 59 U/L (45-117); Aspartate Aminotransferase 68 U/L (15-37); Total Protein 5.5 g/dL (6.4-8.2)
[2020-02-04 04:09] LABS: Band Neutrophils % (manual) 15; Lymphocytes % (manual) 12 (10.0-50.0); Monocytes % (manual) 2 (0-12)
[2020-02-04] MEDS ORDERED: NITROGLYCERIN 0.4 MG SL TAB SL PRN (05:00)
[2020-02-04] MEDS ORDERED: ACETAMINOPHEN 325 MG TAB PO PRN (05:00)
[2020-02-04] MEDS ORDERED: MORPHINE SULF INJ 2 MG/ML SYRINGE 1ML IV PRN (05:00)
[2020-02-04] MEDS ORDERED: SODIUM CHLORIDE 0.9% 1,000 ML IV ONE (05:00)
[2020-02-04] MEDS ORDERED: ALBUTEROL SULF 2.5 MG/0.5ML(0.5%) NEB SOLN NEB PRN (05:00)
[2020-02-04] MEDS ORDERED: IPRATROPIUM BROM 0.5 MG/2.5ML INH SOL NEB PRN (05:00)
[2020-02-04] MEDS: cefTRIAXone 1GM/50ML D5W 50 ML IV SCH (10:46)
[2020-02-04] MEDS: ENOXAPARIN SOD 40 MG/0.4 ML SYRINGE SC SCH (10:47)
[2020-02-04] MEDS: AZITHROMYCIN 500MG/ 250ML 250 ML IV SCH (10:47)
[2020-02-04] MEDS: METOPROLOL TARTRATE 25 MG TAB PO SCH ×2 (10:49→20:52)
[2020-02-04] MEDS: NICOTINE 14 MG/24HR TOPICAL PATCH TD SCH (11:09)
[2020-02-04] MEDS ORDERED: FLUC200T50 PO (12:40)
[2020-02-04] MEDS ORDERED: LEVO-28 PO (12:40)
[2020-02-04] MEDS ORDERED: MET25T PO (12:40)
[2020-02-04] MEDS ORDERED: ALBU0.084 NEB (12:47)
[2020-02-04] MEDS ORDERED: ALBUAER3 IN (12:47)
[2020-02-04] MEDS ORDERED: SODIUM CHLORIDE 0.9% 2,000 ML IV ONE (13:30)
[2020-02-04] MEDS ORDERED: VANCOMYCIN PER PHARMACY 0 MG IV SCH (13:30)
[2020-02-04] MEDS: SODIUM CHLORIDE 0.9% 1,000 ML IV SCH ×2 (15:24→20:54)
[2020-02-04] MEDS: VANCOMYCIN 1GM/250ML 250 ML IV SCH (15:24)
[2020-02-04] MEDS: ALBUTEROL SULF 2.5 MG/0.5ML(0.5%) NEB SOLN NEB SCH ×2 (19:51→23:05)
[2020-02-04] MEDS: IPRATROPIUM BROM 0.5 MG/2.5ML INH SOL NEB SCH ×2 (19:51→23:05)
[2020-02-04 20:10] LABS: Lactic Acid w/Reflex 3.4 mmol/L (0.4-2.0)
[2020-02-04] MEDS: methylPREDNISolone SOD SUCC 40 MG/ML VL IV SCH (20:52)
[2020-02-04] MEDS: TEMAZEPAM 15 MG CAP PO PRN (21:10)
[2020-02-05] VITALS (8 sets, daily range): BP systolic 112–151; BP diastolic 66–92
[2020-02-05 01:16] LABS: Alcohol, Urine < 3.0 mg/dL (0-10); Amphetamine Screen, Urine NEGATIVE (NEGATIVE); Barbiturate Scree,Urine NEGATIVE (NEGATIVE); Benzodiazephine Screen, Urine NEGATIVE (NEGATIVE); Cannabinoid Screen, Urine NEGATIVE (NEGATIVE); Cocaine Screen, Urine NEGATIVE (NEGATIVE); Opiate Scree,Urine NEGATIVE (NEGATIVE); Phencyclidine Screen, Urine NEGATIVE (NEGATIVE)
[2020-02-05] MEDS: VANCOMYCIN 1GM/250ML 250 ML IV SCH ×2 (01:48→14:07)
[2020-02-05] MEDS: ALBUTEROL SULF 2.5 MG/0.5ML(0.5%) NEB SOLN NEB SCH ×5 (02:00→21:57)
[2020-02-05] MEDS: IPRATROPIUM BROM 0.5 MG/2.5ML INH SOL NEB SCH ×5 (02:00→21:57)
[2020-02-05 03:54] LABS: Basophils # (auto) 0 10 ^3/uL (0-0.2); Basophils % (auto) 0.2 % (0.0-2.0); Eosinophils # (auto) 0 10 ^3/uL (0-0.8); Eosinophils % (auto) 0.1 % (0.0-7.0); Hematocrit 47.5 % (41.0-53.0); Hemoglobin 15.5 g/dL (13.5-17.5); Lymphocytes # (auto) 0.2 10 ^3/uL (0.4-5.4); Lymphocytes % (auto) 2.3 % (10.0-50.0); Mean Corpuscular Hemoglobin 32.1 pg (28.0-32.0); Mean Corpuscular Hgb Conc. 32.7 g/dL (32.0-36.0); Mean Corpuscular Volume 98.1 fL (80.0-100.0); Monocytes # (auto) 0.2 10 ^3/uL (0-1.3); Monocytes % (auto) 1.5 % (0.0-12.0); Neutrophils # (auto) 9.8 10 ^3/uL (1.6-8.6); Neutrophils % (auto) 95.9 % (37.0-80.0); Nucleated Red Blood Cells % 0.1 %; Platelet Count (auto) 232 10^3/uL (140-450); Red Blood Cells 4.84 10^6/uL (4.5-5.90); Red Cell Distribution Width 14.4 % (11.8-14.3); White Blood Cell 10.2 10^3/uL (4.4-10.8)
[2020-02-05 04:12] LABS: BUN/Creatinine Ratio 17.9; Calcium 8.4 mg/dL (8.5-10.1); Potassium 4.3 mmol/L (3.5-5.1)
[2020-02-05] MEDS: methylPREDNISolone SOD SUCC 40 MG/ML VL IV SCH ×3 (05:17→21:30)
[2020-02-05] MEDS: SODIUM CHLORIDE 0.9% 1,000 ML IV SCH ×4 (05:17→18:30)
[2020-02-05] MEDS: cefTRIAXone 1GM/50ML D5W 50 ML IV SCH (09:16)
[2020-02-05] MEDS: AZITHROMYCIN 500MG/ 250ML 250 ML IV SCH (10:38)
[2020-02-05] MEDS: ENOXAPARIN SOD 40 MG/0.4 ML SYRINGE SC SCH (10:38)
[2020-02-05] MEDS: METOPROLOL TARTRATE 25 MG TAB PO SCH ×2 (10:40→21:34)
[2020-02-05] MEDS: NICOTINE 14 MG/24HR TOPICAL PATCH TD SCH (11:21)
[2020-02-05] MEDS: TEMAZEPAM 15 MG CAP PO PRN (21:36)
[2020-02-06] VITALS (8 sets, daily range): BP systolic 119–140; BP diastolic 49–87
[2020-02-06] MEDS: ALBUTEROL SULF 2.5 MG/0.5ML(0.5%) NEB SOLN NEB SCH ×6 (01:46→22:21)
[2020-02-06] MEDS: IPRATROPIUM BROM 0.5 MG/2.5ML INH SOL NEB SCH ×6 (01:46→22:21)
[2020-02-06] MEDS: VANCOMYCIN 1GM/250ML 250 ML IV SCH ×3 (02:55→23:35)
[2020-02-06] MEDS: methylPREDNISolone SOD SUCC 40 MG/ML VL IV SCH ×3 (05:32→22:18)
[2020-02-06 05:39] LABS: Basophils # (auto) 0 10 ^3/uL (0-0.2); Basophils % (auto) 0.1 % (0.0-2.0); Eosinophils # (auto) 0 10 ^3/uL (0-0.8); Eosinophils % (auto) 0.1 % (0.0-7.0); Hematocrit 47.1 % (41.0-53.0); Hemoglobin 15.4 g/dL (13.5-17.5); Lymphocytes # (auto) 0.3 10 ^3/uL (0.4-5.4); Lymphocytes % (auto) 1.4 % (10.0-50.0); Mean Corpuscular Hemoglobin 31.5 pg (28.0-32.0); Mean Corpuscular Hgb Conc. 32.7 g/dL (32.0-36.0); Mean Corpuscular Volume 96.2 fL (80.0-100.0); Monocytes # (auto) 0.8 10 ^3/uL (0-1.3); Monocytes % (auto) 3.3 % (0.0-12.0); Neutrophils # (auto) 22.2 10 ^3/uL (1.6-8.6); Neutrophils % (auto) 95.1 % (37.0-80.0); Platelet Count (auto) 294 10^3/uL (140-450); Red Blood Cells 4.89 10^6/uL (4.5-5.90); White Blood Cell 23.3 10^3/uL (4.4-10.8)
[2020-02-06 05:58] LABS: Albumin 2.3 g/dL (3.4-5.0); BUN/Creatinine Ratio 21.1; Calcium 8.7 mg/dL (8.5-10.1); Potassium 4.1 mmol/L (3.5-5.1)
[2020-02-06 06:01] LABS: Bilirubin, Total 0.3 mg/dL (0.2-1.0); Total Protein 5.9 g/dL (6.4-8.2)
[2020-02-06] MEDS: SODIUM CHLORIDE 0.9% 1,000 ML IV SCH ×3 (06:44→23:35)
[2020-02-06] MEDS: cefTRIAXone 1GM/50ML D5W 50 ML IV SCH (09:15)
[2020-02-06] MEDS: METOPROLOL TARTRATE 25 MG TAB PO SCH ×2 (12:58→23:47)
[2020-02-06] MEDS: AZITHROMYCIN 500MG/ 250ML 250 ML IV SCH (12:59)
[2020-02-06] MEDS: NICOTINE 14 MG/24HR TOPICAL PATCH TD SCH (12:59)
[2020-02-06] MEDS: ENOXAPARIN SOD 40 MG/0.4 ML SYRINGE SC SCH (12:59)
[2020-02-07] VITALS (13 sets, daily range): BP systolic 127–162; BP diastolic 69–92
[2020-02-07] MEDS: IPRATROPIUM BROM 0.5 MG/2.5ML INH SOL NEB SCH ×6 (02:11→22:45)
[2020-02-07] MEDS: ALBUTEROL SULF 2.5 MG/0.5ML(0.5%) NEB SOLN NEB SCH ×6 (02:11→22:45)
[2020-02-07] MEDS: VANCOMYCIN 1GM/250ML 250 ML IV SCH ×4 (06:16→23:17)
[2020-02-07] MEDS: methylPREDNISolone SOD SUCC 40 MG/ML VL IV SCH ×3 (06:16→23:16)
[2020-02-07 06:18] LABS: Basophils # (auto) 0.1 10 ^3/uL (0-0.2); Basophils % (auto) 0.4 % (0.0-2.0); Eosinophils # (auto) 0 10 ^3/uL (0-0.8); Hematocrit 45.7 % (41.0-53.0); Lymphocytes # (auto) 0.3 10 ^3/uL (0.4-5.4); Lymphocytes % (auto) 1.4 % (10.0-50.0); Mean Corpuscular Hemoglobin 31.3 pg (28.0-32.0); Mean Corpuscular Hgb Conc. 32.8 g/dL (32.0-36.0); Mean Corpuscular Volume 95.5 fL (80.0-100.0); Monocytes % (auto) 4.1 % (0.0-12.0); Neutrophils # (auto) 22.2 10 ^3/uL (1.6-8.6); Neutrophils % (auto) 94.1 % (37.0-80.0); Platelet Count (auto) 317 10^3/uL (140-450); Red Blood Cells 4.79 10^6/uL (4.5-5.90); Red Cell Distribution Width 14.4 % (11.8-14.3); White Blood Cell 23.6 10^3/uL (4.4-10.8)
[2020-02-07 06:38] LABS: Potassium 4.1 mmol/L (3.5-5.1)
[2020-02-07 06:45] LABS: Albumin 2.2 g/dL (3.4-5.0); BUN/Creatinine Ratio 20.2; Bilirubin, Total 0.3 mg/dL (0.2-1.0); Calcium 8.5 mg/dL (8.5-10.1); Total Protein 5.6 g/dL (6.4-8.2)
[2020-02-07] MEDS: ENOXAPARIN SOD 40 MG/0.4 ML SYRINGE SC SCH (09:42)
[2020-02-07] MEDS: METOPROLOL TARTRATE 25 MG TAB PO SCH ×2 (09:42→23:16)
[2020-02-07] MEDS: cefTRIAXone 1GM/50ML D5W 50 ML IV SCH (09:42)
[2020-02-07] MEDS: NICOTINE 14 MG/24HR TOPICAL PATCH TD SCH (13:00)
[2020-02-07] MEDS: AZITHROMYCIN 500MG/ 250ML 250 ML IV SCH (13:00)
[2020-02-07] MEDS: SODIUM CHLORIDE 0.9% 1,000 ML IV SCH ×2 (14:07→23:18)
[2020-02-08] VITALS (10 sets, daily range): BP systolic 132–156; BP diastolic 76–89
[2020-02-08] MEDS: IPRATROPIUM BROM 0.5 MG/2.5ML INH SOL NEB SCH ×7 (02:00→21:36)
[2020-02-08] MEDS: ALBUTEROL SULF 2.5 MG/0.5ML(0.5%) NEB SOLN NEB SCH ×7 (02:00→21:36)
[2020-02-08] MEDS: VANCOMYCIN 1GM/250ML 250 ML IV SCH ×4 (05:00→23:54)
[2020-02-08] MEDS: ONDANSETRON HCL 4 MG/2 ML VIAL IV PRN (05:46)
[2020-02-08 07:21] LABS: Basophils # (auto) 0 10 ^3/uL (0-0.2); Basophils % (auto) 0.1 % (0.0-2.0); Eosinophils # (auto) 0.1 10 ^3/uL (0-0.8); Eosinophils % (auto) 0.3 % (0.0-7.0); Hematocrit 45.7 % (41.0-53.0); Hemoglobin 15.1 g/dL (13.5-17.5); Lymphocytes # (auto) 0.8 10 ^3/uL (0.4-5.4); Lymphocytes % (auto) 3.3 % (10.0-50.0); Mean Corpuscular Hemoglobin 31.4 pg (28.0-32.0); Mean Corpuscular Volume 95.4 fL (80.0-100.0); Monocytes # (auto) 1.3 10 ^3/uL (0-1.3); Monocytes % (auto) 5.3 % (0.0-12.0); Neutrophils # (auto) 22.7 10 ^3/uL (1.6-8.6); Nucleated Red Blood Cells % 0.1 %; Platelet Count (auto) 337 10^3/uL (140-450); Red Blood Cells 4.79 10^6/uL (4.5-5.90); Red Cell Distribution Width 14.3 % (11.8-14.3); White Blood Cell 24.9 10^3/uL (4.4-10.8)
[2020-02-08 07:52] LABS: Albumin 2.2 g/dL (3.4-5.0); BUN/Creatinine Ratio 21.8; Calcium 8.2 mg/dL (8.5-10.1); Potassium 4.2 mmol/L (3.5-5.1)
[2020-02-08 07:54] LABS: Bilirubin, Total 0.3 mg/dL (0.2-1.0); Total Protein 5.5 g/dL (6.4-8.2)
[2020-02-08] MEDS: cefTRIAXone 1GM/50ML D5W 50 ML IV SCH (08:21)
[2020-02-08] MEDS: SODIUM CHLORIDE 0.9% 1,000 ML IV SCH ×2 (10:00→23:45)
[2020-02-08] MEDS: METOPROLOL TARTRATE 25 MG TAB PO SCH ×2 (10:00→23:53)
[2020-02-08] MEDS: methylPREDNISolone SOD SUCC 40 MG/ML VL IV SCH ×2 (10:36→23:45)
[2020-02-08] MEDS: ENOXAPARIN SOD 40 MG/0.4 ML SYRINGE SC SCH (10:36)
[2020-02-08] MEDS: AZITHROMYCIN 500MG/ 250ML 250 ML IV SCH (10:37)
[2020-02-08] MEDS: NICOTINE 14 MG/24HR TOPICAL PATCH TD SCH (10:37)
[2020-02-09] VITALS (7 sets, daily range): BP systolic 124–150; BP diastolic 62–91
[2020-02-09] MEDS: ALBUTEROL SULF 2.5 MG/0.5ML(0.5%) NEB SOLN NEB SCH ×6 (02:26→22:54)
[2020-02-09] MEDS: IPRATROPIUM BROM 0.5 MG/2.5ML INH SOL NEB SCH ×6 (02:27→22:54)
[2020-02-09 05:46] LABS: Hemoglobin 15.5 g/dL (13.5-17.5); Mean Corpuscular Hemoglobin 31.6 pg (28.0-32.0); Platelet Count (auto) 306 10^3/uL (140-450); Red Cell Distribution Width 14.3 % (11.8-14.3); White Blood Cell 28.3 10^3/uL (4.4-10.8)
[2020-02-09 05:51] LABS: Basophils % (manual) 0 (0.0-2.0); Blast Cells 0; Eosinophils % (manual) 0 (0-7); Myelocytes % 0; Promyelocytes % 0; Reactive Lymphocytes 0
[2020-02-09] MEDS: SODIUM CHLORIDE 0.9% 1,000 ML IV SCH ×3 (06:00→23:24)
[2020-02-09 06:04] LABS: Albumin 2.4 g/dL (3.4-5.0); BUN/Creatinine Ratio 19.4; Calcium 8.7 mg/dL (8.5-10.1); Potassium 4.4 mmol/L (3.5-5.1)
[2020-02-09 06:07] LABS: Bilirubin, Total 0.3 mg/dL (0.2-1.0); Total Protein 5.8 g/dL (6.4-8.2)
[2020-02-09 06:34] LABS: Band Neutrophils % (manual) 1; Lymphocytes % (manual) 1 (10.0-50.0); Metamyelocytes % 1; Monocytes % (manual) 7 (0-12)
[2020-02-09] MEDS: VANCOMYCIN 1GM/250ML 250 ML IV SCH ×2 (09:00→16:15)
[2020-02-09] MEDS: methylPREDNISolone SOD SUCC 40 MG/ML VL IV SCH ×2 (09:34→22:00)
[2020-02-09] MEDS: ENOXAPARIN SOD 40 MG/0.4 ML SYRINGE SC SCH (09:35)
[2020-02-09] MEDS: METOPROLOL TARTRATE 25 MG TAB PO SCH ×2 (09:35→22:00)
[2020-02-09] MEDS: NICOTINE 14 MG/24HR TOPICAL PATCH TD SCH (09:36)
[2020-02-09] MEDS: cefTRIAXone 1GM/50ML D5W 50 ML IV SCH (09:38)
[2020-02-09] MEDS: AZITHROMYCIN 500MG/ 250ML 250 ML IV SCH (10:00)
[2020-02-10] VITALS (7 sets, daily range): BP systolic 141–153; BP diastolic 69–89
[2020-02-10] MEDS: VANCOMYCIN 1GM/250ML 250 ML IV SCH ×3 (00:38→16:03)
[2020-02-10] MEDS: ALBUTEROL SULF 2.5 MG/0.5ML(0.5%) NEB SOLN NEB SCH ×6 (02:00→23:09)
[2020-02-10] MEDS: IPRATROPIUM BROM 0.5 MG/2.5ML INH SOL NEB SCH ×6 (02:00→23:09)
[2020-02-10 06:38] LABS: Mean Corpuscular Hemoglobin 31.4 pg (28.0-32.0); Mean Corpuscular Hgb Conc. 32.7 g/dL (32.0-36.0); Mean Corpuscular Volume 95.9 fL (80.0-100.0); Platelet Count (auto) 304 10^3/uL (140-450); Red Cell Distribution Width 14.2 % (11.8-14.3); White Blood Cell 28.4 10^3/uL (4.4-10.8)
[2020-02-10 06:42] LABS: Band Neutrophils % (manual) 0; Basophils % (manual) 0 (0.0-2.0); Blast Cells 0; Eosinophils % (manual) 0 (0-7); Promyelocytes % 0; Reactive Lymphocytes 0
[2020-02-10 06:58] LABS: Calcium 8.7 mg/dL (8.5-10.1); Potassium 4.7 mmol/L (3.5-5.1)
[2020-02-10 07:00] LABS: BUN/Creatinine Ratio 22.3
[2020-02-10 08:03] LABS: Lymphocytes % (manual) 7 (10.0-50.0); Metamyelocytes % 1; Monocytes % (manual) 7 (0-12); Myelocytes % 2
[2020-02-10] MEDS ORDERED: DEXTROSE (50%) 50ML SYRG IV PRN (09:30)
[2020-02-10] MEDS: cefTRIAXone 1GM/50ML D5W 50 ML IV SCH (10:54)
[2020-02-10] MEDS: ENOXAPARIN SOD 40 MG/0.4 ML SYRINGE SC SCH (10:55)
[2020-02-10] MEDS: METOPROLOL TARTRATE 25 MG TAB PO SCH ×2 (10:55→23:28)
[2020-02-10] MEDS: methylPREDNISolone SOD SUCC 40 MG/ML VL IV SCH ×2 (10:55→23:28)
[2020-02-10] MEDS: NICOTINE 14 MG/24HR TOPICAL PATCH TD SCH (11:05)
[2020-02-10] MEDS: AZITHROMYCIN 500MG/ 250ML 250 ML IV SCH (11:48)
[2020-02-10] MEDS: SODIUM CHLORIDE 0.9% 1,000 ML IV SCH (12:05)
[2020-02-10] MEDS: ACCU-CHEK COMFORT CURVE STRIP VI SCH ×3 (12:05→22:00)
[2020-02-10] MEDS: InsuLIN REG 1unit/0.01ml Soln (100units/ml) SC SCH ×3 (12:05→18:02)
[2020-02-10] MEDS ORDERED: FUROSEMIDE 20 MG/2 ML VIAL IV ONE (16:45)
[2020-02-11] VITALS: BP 146/87
[2020-02-11] MEDS: VANCOMYCIN 1GM/250ML 250 ML IV SCH ×3 (00:18→17:58)
[2020-02-11] MEDS: ALBUTEROL SULF 2.5 MG/0.5ML(0.5%) NEB SOLN NEB SCH ×6 (02:34→22:55)
[2020-02-11] MEDS: IPRATROPIUM BROM 0.5 MG/2.5ML INH SOL NEB SCH ×6 (02:34→22:56)
[2020-02-11] MEDS: SODIUM CHLORIDE 0.9% 1,000 ML IV SCH (03:52)
[2020-02-11 04:00] VITALS: BP 136/89
[2020-02-11 05:00] LABS: Hematocrit 48.4 % (41.0-53.0); Hemoglobin 15.8 g/dL (13.5-17.5); Mean Corpuscular Hgb Conc. 32.7 g/dL (32.0-36.0); Mean Corpuscular Volume 94.9 fL (80.0-100.0); Platelet Count (auto) 294 10^3/uL (140-450); Red Cell Distribution Width 14.5 % (11.8-14.3); White Blood Cell 25.9 10^3/uL (4.4-10.8)
[2020-02-11 05:27] LABS: Basophils % (manual) 0 (0.0-2.0); Blast Cells 0; Eosinophils % (manual) 0 (0-7); Metamyelocytes % 0; Myelocytes % 0; Promyelocytes % 0; Reactive Lymphocytes 0
[2020-02-11] MEDS: InsuLIN REG 1unit/0.01ml Soln (100units/ml) SC SCH ×4 (06:54→22:55)
[2020-02-11] MEDS: ACCU-CHEK COMFORT CURVE STRIP VI SCH ×4 (07:00→22:54)
[2020-02-11 08:00] VITALS: BP 132/85
[2020-02-11 08:29] LABS: Band Neutrophils % (manual) 2; Lymphocytes % (manual) 8 (10.0-50.0); Monocytes % (manual) 7 (0-12)
[2020-02-11] MEDS ORDERED: LABETALOL HCL 5 MG/ML 4ML SYRINGE IV PRN (09:15)
[2020-02-11] MEDS: METOPROLOL TARTRATE 25 MG TAB PO SCH ×3 (10:00→22:54)
[2020-02-11] MEDS: cefTRIAXone 1GM/50ML D5W 50 ML IV SCH (11:35)
[2020-02-11] MEDS: AZITHROMYCIN 500MG/ 250ML 250 ML IV SCH (11:38)
[2020-02-11] MEDS: methylPREDNISolone SOD SUCC 40 MG/ML VL IV SCH ×2 (11:38→22:53)
[2020-02-11] MEDS: ENOXAPARIN SOD 40 MG/0.4 ML SYRINGE SC SCH (11:39)
[2020-02-11] MEDS: NICOTINE 14 MG/24HR TOPICAL PATCH TD SCH (11:39)
[2020-02-11 11:50] VITALS: BP 151/94
[2020-02-11 15:39] VITALS: BP 120/68
[2020-02-11 20:00] VITALS: BP 121/68
[2020-02-12] VITALS: BP 148/84
[2020-02-12] MEDS: ALBUTEROL SULF 2.5 MG/0.5ML(0.5%) NEB SOLN NEB SCH ×6 (02:29→22:57)
[2020-02-12] MEDS: IPRATROPIUM BROM 0.5 MG/2.5ML INH SOL NEB SCH ×6 (02:29→22:57)
[2020-02-12 03:24] LABS: Hemoglobin 16.6 g/dL (13.5-17.5); Mean Corpuscular Hemoglobin 31.2 pg (28.0-32.0); Mean Corpuscular Hgb Conc. 32.6 g/dL (32.0-36.0); Mean Corpuscular Volume 95.7 fL (80.0-100.0); Platelet Count (auto) 323 10^3/uL (140-450); Red Blood Cells 5.33 10^6/uL (4.5-5.90); Red Cell Distribution Width 14.8 % (11.8-14.3); White Blood Cell 28.4 10^3/uL (4.4-10.8)
[2020-02-12 03:33] LABS: Basophils % (manual) 0 (0.0-2.0); Blast Cells 0; Eosinophils % (manual) 0 (0-7); Metamyelocytes % 0; Myelocytes % 0; Promyelocytes % 0; Reactive Lymphocytes 0
[2020-02-12 03:46] VITALS: BP 162/91
[2020-02-12 03:50] LABS: Albumin 2.9 g/dL (3.4-5.0); BUN/Creatinine Ratio 19.6; Calcium 9.4 mg/dL (8.5-10.1); Potassium 4.6 mmol/L (3.5-5.1)
[2020-02-12 04:01] LABS: Bilirubin, Total 0.3 mg/dL (0.2-1.0); Total Protein 6.7 g/dL (6.4-8.2)
[2020-02-12 04:33] LABS: Band Neutrophils % (manual) 2; Lymphocytes % (manual) 8 (10.0-50.0); Monocytes % (manual) 5 (0-12)
[2020-02-12] MEDS: InsuLIN REG 1unit/0.01ml Soln (100units/ml) SC SCH ×4 (07:00→21:26)
[2020-02-12] MEDS: ACCU-CHEK COMFORT CURVE STRIP VI SCH ×4 (07:00→21:23)
[2020-02-12] MEDS: VANCOMYCIN 1GM/250ML 250 ML IV SCH ×4 (07:20→21:23)
[2020-02-12 08:29] VITALS: BP 137/78
[2020-02-12 10:20] LABS: INR 0.98 (0.9-1.15); Partial Thromboplastin Time 21.5 sec (23.64-32.05)
[2020-02-12] MEDS: METOPROLOL TARTRATE 25 MG TAB PO SCH ×2 (10:53→21:22)
[2020-02-12] MEDS: ENOXAPARIN SOD 40 MG/0.4 ML SYRINGE SC SCH (10:54)
[2020-02-12] MEDS: NICOTINE 14 MG/24HR TOPICAL PATCH TD SCH (10:54)
[2020-02-12] MEDS ORDERED: LIDOCAINE 1% (LOCAL ANESTH.) PF 5ml SDV ID ONE (13:00)
[2020-02-12 13:27] VITALS: BP 151/83
[2020-02-12] MEDS: methylPREDNISolone SOD SUCC 40 MG/ML VL IV SCH ×2 (14:32→21:23)
[2020-02-12] MEDS: levoFLOXacin 500MG 100 ML IV SCH (14:33)
[2020-02-12 15:35] VITALS: BP 132/72
[2020-02-12 20:00] VITALS: BP 127/56
[2020-02-12] MEDS: SODIUM CHLOR 0.9% PF (SALINE LOCK) 10ML VIAL/SYR IV SCH (21:23)
[2020-02-13] VITALS: BP 143/83
[2020-02-13] MEDS: ALBUTEROL SULF 2.5 MG/0.5ML(0.5%) NEB SOLN NEB SCH ×6 (02:51→21:58)
[2020-02-13] MEDS: IPRATROPIUM BROM 0.5 MG/2.5ML INH SOL NEB SCH ×6 (02:52→21:59)
[2020-02-13] MEDS: ONDANSETRON HCL 4 MG/2 ML VIAL IV PRN (02:55)
[2020-02-13 03:56] LABS: Hematocrit 49.7 % (41.0-53.0); Hemoglobin 16.3 g/dL (13.5-17.5); Mean Corpuscular Hemoglobin 31.6 pg (28.0-32.0); Mean Corpuscular Hgb Conc. 32.9 g/dL (32.0-36.0); Platelet Count (auto) 265 10^3/uL (140-450); Red Blood Cells 5.18 10^6/uL (4.5-5.90); Red Cell Distribution Width 14.9 % (11.8-14.3)
[2020-02-13 03:59] LABS: Basophils % (manual) 0 (0.0-2.0); Blast Cells 0; Eosinophils % (manual) 0 (0-7); Metamyelocytes % 0; Myelocytes % 0; Promyelocytes % 0; Reactive Lymphocytes 0
[2020-02-13 04:00] VITALS: BP 129/73
[2020-02-13 04:08] LABS: BUN/Creatinine Ratio 17.4; Calcium 8.9 mg/dL (8.5-10.1); Potassium 4.6 mmol/L (3.5-5.1)
[2020-02-13 04:13] LABS: Band Neutrophils % (manual) 2; Lymphocytes % (manual) 7 (10.0-50.0); Monocytes % (manual) 4 (0-12)
[2020-02-13] MEDS: ACCU-CHEK COMFORT CURVE STRIP VI SCH ×4 (06:19→21:47)
[2020-02-13] MEDS: VANCOMYCIN 1GM/250ML 250 ML IV SCH ×3 (06:19→21:47)
[2020-02-13] MEDS: InsuLIN REG 1unit/0.01ml Soln (100units/ml) SC SCH ×4 (06:21→21:48)
[2020-02-13 08:00] VITALS: BP 141/84
[2020-02-13] MEDS: levoFLOXacin 500MG 100 ML IV SCH (10:17)
[2020-02-13] MEDS: methylPREDNISolone SOD SUCC 40 MG/ML VL IV SCH ×2 (10:17→21:47)
[2020-02-13] MEDS: SODIUM CHLOR 0.9% PF (SALINE LOCK) 10ML VIAL/SYR IV SCH ×2 (10:17→21:47)
[2020-02-13] MEDS: ENOXAPARIN SOD 40 MG/0.4 ML SYRINGE SC SCH (10:18)
[2020-02-13] MEDS: METOPROLOL TARTRATE 25 MG TAB PO SCH ×2 (10:18→21:47)
[2020-02-13] MEDS: NICOTINE 14 MG/24HR TOPICAL PATCH TD SCH (10:19)
[2020-02-13 12:15] VITALS: BP 135/93
[2020-02-13 13:04] VITALS: BP 129/73
[2020-02-13 16:00] VITALS: BP 127/89
[2020-02-13] MEDS ORDERED: FUROSEMIDE 40 MG/4 ML VIAL IV ONE (19:00)
[2020-02-14] VITALS: BP 134/87
[2020-02-14] MEDS: ALBUTEROL SULF 2.5 MG/0.5ML(0.5%) NEB SOLN NEB SCH ×6 (02:09→23:06)
[2020-02-14] MEDS: IPRATROPIUM BROM 0.5 MG/2.5ML INH SOL NEB SCH ×6 (02:10→23:06)
[2020-02-14 04:00] VITALS: BP 130/79
[2020-02-14 04:12] LABS: Hematocrit 50.2 % (41.0-53.0); Hemoglobin 16.5 g/dL (13.5-17.5); Mean Corpuscular Hemoglobin 31.7 pg (28.0-32.0); Mean Corpuscular Hgb Conc. 32.8 g/dL (32.0-36.0); Mean Corpuscular Volume 96.6 fL (80.0-100.0); Platelet Count (auto) 232 10^3/uL (140-450); Red Cell Distribution Width 14.7 % (11.8-14.3); White Blood Cell 25.2 10^3/uL (4.4-10.8)
[2020-02-14 04:34] LABS: BUN/Creatinine Ratio 18.9; Calcium 8.9 mg/dL (8.5-10.1); Potassium 4.7 mmol/L (3.5-5.1)
[2020-02-14 04:43] LABS: Basophils % (manual) 0 (0.0-2.0); Eosinophils % (manual) 0 (0-7); Metamyelocytes % 0; Monocytes % (manual) 0 (0-12); Myelocytes % 0; Promyelocytes % 0
[2020-02-14 04:44] LABS: Blast Cells 0; Reactive Lymphocytes 0
[2020-02-14 05:14] LABS: Band Neutrophils % (manual) 9; Lymphocytes % (manual) 4 (10.0-50.0)
[2020-02-14] MEDS: ACCU-CHEK COMFORT CURVE STRIP VI SCH ×3 (05:30→17:28)
[2020-02-14] MEDS: VANCOMYCIN 1GM/250ML 250 ML IV SCH ×2 (05:30→16:08)
[2020-02-14] MEDS: InsuLIN REG 1unit/0.01ml Soln (100units/ml) SC SCH ×3 (05:36→17:15)
[2020-02-14 08:00] VITALS: BP 144/93
[2020-02-14] MEDS: FUROSEMIDE 40 MG/4 ML VIAL IV SCH (10:01)
[2020-02-14] MEDS: levoFLOXacin 500MG 100 ML IV SCH (10:02)
[2020-02-14] MEDS: METOPROLOL TARTRATE 25 MG TAB PO SCH ×2 (10:02→21:05)
[2020-02-14] MEDS: SODIUM CHLOR 0.9% PF (SALINE LOCK) 10ML VIAL/SYR IV SCH ×2 (10:02→21:02)
[2020-02-14] MEDS: methylPREDNISolone SOD SUCC 40 MG/ML VL IV SCH (10:02)
[2020-02-14] MEDS: NICOTINE 14 MG/24HR TOPICAL PATCH TD SCH (10:03)
[2020-02-14] MEDS: ENOXAPARIN SOD 40 MG/0.4 ML SYRINGE SC SCH (10:03)
[2020-02-14 12:00] VITALS: BP 133/80
[2020-02-14] MEDS: SODIUM CHLORIDE 0.9% 1,000 ML IV SCH (12:45)
[2020-02-14 15:56] VITALS: BP 152/90
[2020-02-14 20:00] VITALS: BP 128/87
[2020-02-14] MEDS: methylPREDNISolone SOD SUCC 125 MG/2 ML VL IV SCH (21:04)
[2020-02-15] VITALS: BP 128/76
[2020-02-15] MEDS: ACCU-CHEK COMFORT CURVE STRIP VI SCH ×4 (00:22→17:20)
[2020-02-15] MEDS: SODIUM CHLORIDE 0.9% 1,000 ML IV SCH ×2 (00:23→15:25)
[2020-02-15] MEDS: VANCOMYCIN 1GM/250ML 250 ML IV SCH ×2 (00:59→11:57)
[2020-02-15] MEDS: InsuLIN REG 1unit/0.01ml Soln (100units/ml) SC SCH ×4 (01:18→17:20)
[2020-02-15] MEDS: IPRATROPIUM BROM 0.5 MG/2.5ML INH SOL NEB SCH ×5 (02:00→22:02)
[2020-02-15] MEDS: ALBUTEROL SULF 2.5 MG/0.5ML(0.5%) NEB SOLN NEB SCH ×5 (02:00→22:02)
[2020-02-15 03:20] LABS: Hematocrit 48.7 % (41.0-53.0); Mean Corpuscular Hemoglobin 31.5 pg (28.0-32.0); Mean Corpuscular Hgb Conc. 32.9 g/dL (32.0-36.0); Mean Corpuscular Volume 95.8 fL (80.0-100.0); Platelet Count (auto) 212 10^3/uL (140-450); Red Blood Cells 5.08 10^6/uL (4.5-5.90); Red Cell Distribution Width 14.7 % (11.8-14.3); White Blood Cell 23.6 10^3/uL (4.4-10.8)
[2020-02-15 03:23] LABS: Basophils % (manual) 0 (0.0-2.0); Blast Cells 0; Eosinophils % (manual) 0 (0-7); Myelocytes % 0; Promyelocytes % 0; Reactive Lymphocytes 0
[2020-02-15 03:38] LABS: Albumin 2.6 g/dL (3.4-5.0); Calcium 8.7 mg/dL (8.5-10.1); Potassium 4.7 mmol/L (3.5-5.1)
[2020-02-15 03:41] LABS: BUN/Creatinine Ratio 24.5; Bilirubin, Total 0.3 mg/dL (0.2-1.0); Total Protein 5.9 g/dL (6.4-8.2)
[2020-02-15 04:00] VITALS: BP 118/70
[2020-02-15 05:05] LABS: Band Neutrophils % (manual) 6; Lymphocytes % (manual) 3 (10.0-50.0); Metamyelocytes % 1; Monocytes % (manual) 2 (0-12)
[2020-02-15] MEDS: methylPREDNISolone SOD SUCC 125 MG/2 ML VL IV SCH ×3 (05:52→22:00)
[2020-02-15 08:00] VITALS: BP 133/83
[2020-02-15] MEDS: NICOTINE 14 MG/24HR TOPICAL PATCH TD SCH (10:00)
[2020-02-15] MEDS: ENOXAPARIN SOD 40 MG/0.4 ML SYRINGE SC SCH (10:04)
[2020-02-15] MEDS: METOPROLOL TARTRATE 25 MG TAB PO SCH ×2 (10:04→22:00)
[2020-02-15] MEDS: SODIUM CHLOR 0.9% PF (SALINE LOCK) 10ML VIAL/SYR IV SCH ×2 (10:12→22:00)
[2020-02-15] MEDS: FUROSEMIDE 40 MG/4 ML VIAL IV SCH (10:13)
[2020-02-15] MEDS: levoFLOXacin 500MG 100 ML IV SCH (10:16)
[2020-02-15 12:00] VITALS: BP 123/76
[2020-02-15 16:00] VITALS: BP 129/82
[2020-02-16] VITALS (8 sets, daily range): BP systolic 122–145; BP diastolic 54–85
[2020-02-16] MEDS: VANCOMYCIN 1GM/250ML 250 ML IV SCH ×3 (00:42→17:59)
[2020-02-16] MEDS: ALBUTEROL SULF 2.5 MG/0.5ML(0.5%) NEB SOLN NEB SCH ×6 (02:08→21:23)
[2020-02-16] MEDS: IPRATROPIUM BROM 0.5 MG/2.5ML INH SOL NEB SCH ×6 (02:08→21:22)
[2020-02-16 03:01] LABS: Hematocrit 47.8 % (41.0-53.0); Hemoglobin 15.8 g/dL (13.5-17.5); Mean Corpuscular Hemoglobin 31.8 pg (28.0-32.0); Mean Corpuscular Volume 96.5 fL (80.0-100.0); Platelet Count (auto) 186 10^3/uL (140-450); Red Blood Cells 4.95 10^6/uL (4.5-5.90); Red Cell Distribution Width 14.7 % (11.8-14.3); White Blood Cell 23.5 10^3/uL (4.4-10.8)
[2020-02-16 03:06] LABS: Band Neutrophils % (manual) 0; Basophils % (manual) 0 (0.0-2.0); Blast Cells 0; Eosinophils % (manual) 0 (0-7); Metamyelocytes % 0; Myelocytes % 0; Promyelocytes % 0; Reactive Lymphocytes 0
[2020-02-16 03:15] LABS: Calcium 8.4 mg/dL (8.5-10.1); Potassium 4.3 mmol/L (3.5-5.1)
[2020-02-16 03:18] LABS: BUN/Creatinine Ratio 21.1
[2020-02-16 03:52] LABS: Lymphocytes % (manual) 5 (10.0-50.0); Monocytes % (manual) 1 (0-12)
[2020-02-16] MEDS: SODIUM CHLORIDE 0.9% 1,000 ML IV SCH ×2 (04:45→18:05)
[2020-02-16] MEDS: methylPREDNISolone SOD SUCC 125 MG/2 ML VL IV SCH ×3 (06:00→22:03)
[2020-02-16] MEDS: InsuLIN REG 1unit/0.01ml Soln (100units/ml) SC SCH ×5 (06:03→23:51)
[2020-02-16] MEDS: ACCU-CHEK COMFORT CURVE STRIP VI SCH ×5 (06:04→23:56)
[2020-02-16] MEDS: METOPROLOL TARTRATE 25 MG TAB PO SCH ×2 (09:22→22:03)
[2020-02-16] MEDS: FUROSEMIDE 40 MG/4 ML VIAL IV SCH (09:24)
[2020-02-16] MEDS: levoFLOXacin 500MG 100 ML IV SCH (11:45)
[2020-02-16] MEDS: SODIUM CHLOR 0.9% PF (SALINE LOCK) 10ML VIAL/SYR IV SCH ×2 (11:45→22:03)
[2020-02-16] MEDS: NICOTINE 14 MG/24HR TOPICAL PATCH TD SCH (11:45)
[2020-02-16] MEDS ORDERED: IOHEXOL 350 MG/ML 100ML IJ ONE (15:01)
[2020-02-17] MEDS: ALBUTEROL SULF 2.5 MG/0.5ML(0.5%) NEB SOLN NEB SCH ×6 (02:25→22:53)
[2020-02-17] MEDS: IPRATROPIUM BROM 0.5 MG/2.5ML INH SOL NEB SCH ×6 (02:25→22:53)
[2020-02-17 03:50] LABS: Hematocrit 46.4 % (41.0-53.0); Hemoglobin 15.3 g/dL (13.5-17.5); Mean Corpuscular Hemoglobin 31.6 pg (28.0-32.0); Mean Corpuscular Hgb Conc. 33.1 g/dL (32.0-36.0); Mean Corpuscular Volume 95.6 fL (80.0-100.0); Platelet Count (auto) 173 10^3/uL (140-450); Red Blood Cells 4.85 10^6/uL (4.5-5.90); Red Cell Distribution Width 14.7 % (11.8-14.3); White Blood Cell 21.7 10^3/uL (4.4-10.8)
[2020-02-17 04:03] LABS: Potassium 4.4 mmol/L (3.5-5.1)
[2020-02-17 04:11] LABS: Albumin 2.5 g/dL (3.4-5.0); BUN/Creatinine Ratio 24.7; Bilirubin, Total 0.5 mg/dL (0.2-1.0); Calcium 8.3 mg/dL (8.5-10.1); Total Protein 5.6 g/dL (6.4-8.2)
[2020-02-17 04:12] LABS: Band Neutrophils % (manual) 0; Basophils % (manual) 0 (0.0-2.0); Eosinophils % (manual) 0 (0-7); Metamyelocytes % 0; Promyelocytes % 0; Reactive Lymphocytes 0
[2020-02-17 04:13] LABS: Blast Cells 0
[2020-02-17] MEDS: VANCOMYCIN 1GM/250ML 250 ML IV SCH ×2 (04:13→14:28)
[2020-02-17 05:05] LABS: Lymphocytes % (manual) 6 (10.0-50.0); Monocytes % (manual) 4 (0-12); Myelocytes % 2
[2020-02-17] MEDS: InsuLIN REG 1unit/0.01ml Soln (100units/ml) SC SCH ×3 (06:00→17:30)
[2020-02-17] MEDS: methylPREDNISolone SOD SUCC 125 MG/2 ML VL IV SCH ×3 (06:00→22:43)
[2020-02-17] MEDS: ACCU-CHEK COMFORT CURVE STRIP VI SCH ×3 (06:00→17:29)
[2020-02-17 08:00] VITALS: BP 150/94
[2020-02-17] MEDS: FUROSEMIDE 40 MG/4 ML VIAL IV SCH (09:32)
[2020-02-17] MEDS: NICOTINE 14 MG/24HR TOPICAL PATCH TD SCH (09:33)
[2020-02-17] MEDS: levoFLOXacin 500MG 100 ML IV SCH (09:33)
[2020-02-17] MEDS: METOPROLOL TARTRATE 25 MG TAB PO SCH ×2 (09:33→22:43)
[2020-02-17] MEDS: SODIUM CHLORIDE 0.9% 1,000 ML IV SCH (09:34)
[2020-02-17] MEDS: SODIUM CHLOR 0.9% PF (SALINE LOCK) 10ML VIAL/SYR IV SCH ×2 (09:35→22:43)
[2020-02-17 11:50] VITALS: BP 125/91
[2020-02-17] MEDS ORDERED: PANTOPRAZOLE 40 MG TAB PO ONE (13:00)
[2020-02-17 17:00] VITALS: BP 125/92
[2020-02-17 22:00] VITALS: BP 117/77
[2020-02-18] MEDS: IPRATROPIUM BROM 0.5 MG/2.5ML INH SOL NEB SCH ×6 (02:17→22:38)
[2020-02-18] MEDS: ALBUTEROL SULF 2.5 MG/0.5ML(0.5%) NEB SOLN NEB SCH ×6 (02:17→22:39)
[2020-02-18 04:50] VITALS: BP 113/65
[2020-02-18] MEDS: SODIUM CHLORIDE 0.9% 1,000 ML IV SCH ×3 (05:27→23:29)
[2020-02-18] MEDS: methylPREDNISolone SOD SUCC 125 MG/2 ML VL IV SCH ×3 (05:27→21:36)
[2020-02-18] MEDS: ACCU-CHEK COMFORT CURVE STRIP VI SCH ×4 (05:33→17:15)
[2020-02-18] MEDS: InsuLIN REG 1unit/0.01ml Soln (100units/ml) SC SCH ×4 (05:39→17:16)
[2020-02-18] MEDS ORDERED: VANCOMYCIN 1GM/250ML 250 ML IV ONE (05:40)
[2020-02-18 07:45] LABS: Hematocrit 46.8 % (41.0-53.0); Hemoglobin 15.3 g/dL (13.5-17.5); Mean Corpuscular Hemoglobin 31.2 pg (28.0-32.0); Mean Corpuscular Hgb Conc. 32.7 g/dL (32.0-36.0); Mean Corpuscular Volume 95.4 fL (80.0-100.0); Platelet Count (auto) 172 10^3/uL (140-450); Red Cell Distribution Width 14.7 % (11.8-14.3); White Blood Cell 20.1 10^3/uL (4.4-10.8)
[2020-02-18 07:51] LABS: Band Neutrophils % (manual) 0; Basophils % (manual) 0 (0.0-2.0); Blast Cells 0; Eosinophils % (manual) 0 (0-7); Myelocytes % 0; Promyelocytes % 0; Reactive Lymphocytes 0
[2020-02-18 07:56] LABS: BUN/Creatinine Ratio 25.2; Calcium 8.3 mg/dL (8.5-10.1); Potassium 4.4 mmol/L (3.5-5.1)
[2020-02-18 08:08] LABS: Lymphocytes % (manual) 6 (10.0-50.0); Metamyelocytes % 1; Monocytes % (manual) 9 (0-12)
[2020-02-18 09:00] VITALS: BP 136/86
[2020-02-18] MEDS: levoFLOXacin 500MG 100 ML IV SCH (09:28)
[2020-02-18] MEDS: METOPROLOL TARTRATE 25 MG TAB PO SCH ×2 (09:28→21:36)
[2020-02-18] MEDS: PANTOPRAZOLE 40 MG TAB PO SCH (09:28)
[2020-02-18] MEDS: SODIUM CHLOR 0.9% PF (SALINE LOCK) 10ML VIAL/SYR IV SCH ×2 (09:28→21:36)
[2020-02-18] MEDS: FUROSEMIDE 40 MG/4 ML VIAL IV SCH (09:29)
[2020-02-18] MEDS: NICOTINE 14 MG/24HR TOPICAL PATCH TD SCH (09:31)
[2020-02-18 13:00] VITALS: BP 113/78
[2020-02-18 16:56] VITALS: BP 120/75
[2020-02-18] MEDS: VANCOMYCIN 1GM/250ML 250 ML IV SCH (17:15)
[2020-02-18 22:00] VITALS: BP 122/74
[2020-02-19] MEDS: ACCU-CHEK COMFORT CURVE STRIP VI SCH ×4 (00:03→17:51)
[2020-02-19] MEDS: InsuLIN REG 1unit/0.01ml Soln (100units/ml) SC SCH ×4 (00:08→17:51)
[2020-02-19] MEDS: ALBUTEROL SULF 2.5 MG/0.5ML(0.5%) NEB SOLN NEB SCH ×7 (02:26→23:37)
[2020-02-19] MEDS: IPRATROPIUM BROM 0.5 MG/2.5ML INH SOL NEB SCH ×7 (02:26→23:37)
[2020-02-19 04:50] VITALS: BP 116/88
[2020-02-19] MEDS: methylPREDNISolone SOD SUCC 125 MG/2 ML VL IV SCH ×3 (05:09→22:08)
[2020-02-19] MEDS: VANCOMYCIN 1GM/250ML 250 ML IV SCH ×2 (06:02→18:30)
[2020-02-19 09:00] VITALS: BP 142/93
[2020-02-19] MEDS: SODIUM CHLOR 0.9% PF (SALINE LOCK) 10ML VIAL/SYR IV SCH ×2 (10:30→22:07)
[2020-02-19] MEDS ORDERED: NICOTINE 21MG/24 HR TOPICAL PATCH TD ONE (10:30)
[2020-02-19] MEDS: PANTOPRAZOLE 40 MG TAB PO SCH (11:10)
[2020-02-19] MEDS: levoFLOXacin 500MG 100 ML IV SCH (11:11)
[2020-02-19] MEDS: FUROSEMIDE 40 MG/4 ML VIAL IV SCH (11:11)
[2020-02-19] MEDS: METOPROLOL TARTRATE 25 MG TAB PO SCH ×2 (11:11→22:08)
[2020-02-19] MEDS: SODIUM CHLORIDE 0.9% 1,000 ML IV SCH (12:45)
[2020-02-19 13:00] VITALS: BP 133/81
[2020-02-19 15:05] VITALS: BP 133/81
[2020-02-19 17:00] VITALS: BP 125/77
[2020-02-19 22:00] VITALS: BP 102/74
[2020-02-20] MEDS: ACCU-CHEK COMFORT CURVE STRIP VI SCH ×5 (00:05→23:31)
[2020-02-20] MEDS: InsuLIN REG 1unit/0.01ml Soln (100units/ml) SC SCH ×5 (00:13→23:21)
[2020-02-20] MEDS: IPRATROPIUM BROM 0.5 MG/2.5ML INH SOL NEB SCH ×6 (02:00→21:56)
[2020-02-20] MEDS: ALBUTEROL SULF 2.5 MG/0.5ML(0.5%) NEB SOLN NEB SCH ×7 (02:00→21:58)
[2020-02-20] MEDS: SODIUM CHLORIDE 0.9% 1,000 ML IV SCH ×2 (02:25→15:25)
[2020-02-20 05:00] VITALS: BP 109/43
[2020-02-20 05:25] LABS: Hematocrit 46.3 % (41.0-53.0); Hemoglobin 15.5 g/dL (13.5-17.5); Mean Corpuscular Hgb Conc. 33.5 g/dL (32.0-36.0); Mean Corpuscular Volume 95.5 fL (80.0-100.0); Platelet Count (auto) 151 10^3/uL (140-450); Red Blood Cells 4.85 10^6/uL (4.5-5.90); Red Cell Distribution Width 14.9 % (11.8-14.3); White Blood Cell 16.1 10^3/uL (4.4-10.8)
[2020-02-20 05:34] LABS: Albumin 2.5 g/dL (3.4-5.0); Calcium 8.3 mg/dL (8.5-10.1); Potassium 4.7 mmol/L (3.5-5.1)
[2020-02-20 05:37] LABS: Bilirubin, Total 0.5 mg/dL (0.2-1.0); Total Protein 5.3 g/dL (6.4-8.2)
[2020-02-20 05:40] LABS: Basophils % (manual) 0 (0.0-2.0); Blast Cells 0; Eosinophils % (manual) 0 (0-7); Metamyelocytes % 0; Promyelocytes % 0; Reactive Lymphocytes 0
[2020-02-20] MEDS: methylPREDNISolone SOD SUCC 125 MG/2 ML VL IV SCH ×3 (05:51→21:49)
[2020-02-20] MEDS: VANCOMYCIN 1GM/250ML 250 ML IV SCH ×2 (05:51→17:30)
[2020-02-20 06:30] LABS: Band Neutrophils % (manual) 1; Lymphocytes % (manual) 10 (10.0-50.0); Monocytes % (manual) 2 (0-12); Myelocytes % 2
[2020-02-20 09:00] VITALS: BP 133/85
[2020-02-20] MEDS: FUROSEMIDE 40 MG/4 ML VIAL IV SCH (11:54)
[2020-02-20] MEDS: levoFLOXacin 500MG 100 ML IV SCH (11:54)
[2020-02-20] MEDS: SODIUM CHLOR 0.9% PF (SALINE LOCK) 10ML VIAL/SYR IV SCH ×2 (11:55→21:48)
[2020-02-20] MEDS: PANTOPRAZOLE 40 MG TAB PO SCH (11:55)
[2020-02-20] MEDS: METOPROLOL TARTRATE 25 MG TAB PO SCH ×2 (11:55→21:49)
[2020-02-20 13:00] VITALS: BP 138/89
[2020-02-20 17:00] VITALS: BP 144/84
[2020-02-20 21:49] VITALS: BP 146/76
[2020-02-21] MEDS: ALBUTEROL SULF 2.5 MG/0.5ML(0.5%) NEB SOLN NEB SCH ×5 (02:00→23:48)
[2020-02-21] MEDS: IPRATROPIUM BROM 0.5 MG/2.5ML INH SOL NEB SCH ×5 (02:00→23:49)
[2020-02-21] MEDS: VANCOMYCIN 1GM/250ML 250 ML IV SCH ×3 (02:10→23:46)
[2020-02-21] MEDS: SODIUM CHLORIDE 0.9% 1,000 ML IV SCH ×2 (02:14→18:21)
[2020-02-21] MEDS: ACCU-CHEK COMFORT CURVE STRIP VI SCH ×3 (05:26→18:21)
[2020-02-21] MEDS: InsuLIN REG 1unit/0.01ml Soln (100units/ml) SC SCH ×3 (05:36→18:23)
[2020-02-21 06:46] LABS: Hematocrit 47.1 % (41.0-53.0); Hemoglobin 15.8 g/dL (13.5-17.5); Mean Corpuscular Hemoglobin 31.8 pg (28.0-32.0); Mean Corpuscular Hgb Conc. 33.5 g/dL (32.0-36.0); Mean Corpuscular Volume 94.9 fL (80.0-100.0); Platelet Count (auto) 190 10^3/uL (140-450); Red Blood Cells 4.97 10^6/uL (4.5-5.90); Red Cell Distribution Width 14.7 % (11.8-14.3); White Blood Cell 17.6 10^3/uL (4.4-10.8)
[2020-02-21 06:48] LABS: Basophils % (manual) 0 (0.0-2.0); Blast Cells 0; Eosinophils % (manual) 0 (0-7); Promyelocytes % 0; Reactive Lymphocytes 0
[2020-02-21 06:53] LABS: BUN/Creatinine Ratio 28.1; Calcium 8.3 mg/dL (8.5-10.1); Potassium 4.3 mmol/L (3.5-5.1)
[2020-02-21 08:59] VITALS: BP 142/81
[2020-02-21] MEDS: levoFLOXacin 500MG 100 ML IV SCH (09:42)
[2020-02-21] MEDS: PANTOPRAZOLE 40 MG TAB PO SCH (09:43)
[2020-02-21] MEDS: FUROSEMIDE 40 MG/4 ML VIAL IV SCH (09:43)
[2020-02-21] MEDS: METOPROLOL TARTRATE 25 MG TAB PO SCH ×2 (09:44→23:46)
[2020-02-21] MEDS: SODIUM CHLOR 0.9% PF (SALINE LOCK) 10ML VIAL/SYR IV SCH ×2 (09:44→23:46)
[2020-02-21] MEDS: methylPREDNISolone SOD SUCC 125 MG/2 ML VL IV SCH (09:44)
[2020-02-21 09:58] LABS: Band Neutrophils % (manual) 4; Lymphocytes % (manual) 7 (10.0-50.0); Metamyelocytes % 1; Monocytes % (manual) 6 (0-12); Myelocytes % 1
[2020-02-21 13:00] VITALS: BP_SYST 126; BP_SYST 142; BP_DIAS 82; BP_DIAS 83
[2020-02-21 16:55] VITALS: BP 142/73
[2020-02-21 22:00] VITALS: BP 144/86
[2020-02-21] MEDS: methylPREDNISolone SOD SUCC 40 MG/ML VL IV SCH (23:44)
[2020-02-22] MEDS: InsuLIN REG 1unit/0.01ml Soln (100units/ml) SC SCH ×5 (00:12→22:57)
[2020-02-22] MEDS: ACCU-CHEK COMFORT CURVE STRIP VI SCH ×5 (00:13→22:53)
[2020-02-22 05:00] VITALS: BP 139/84
[2020-02-22 06:09] LABS: Hematocrit 47.1 % (41.0-53.0); Hemoglobin 15.7 g/dL (13.5-17.5); Mean Corpuscular Hemoglobin 31.8 pg (28.0-32.0); Mean Corpuscular Hgb Conc. 33.4 g/dL (32.0-36.0); Mean Corpuscular Volume 95.2 fL (80.0-100.0); Platelet Count (auto) 186 10^3/uL (140-450); Red Blood Cells 4.95 10^6/uL (4.5-5.90); Red Cell Distribution Width 14.6 % (11.8-14.3); White Blood Cell 18.2 10^3/uL (4.4-10.8)
[2020-02-22 06:14] LABS: Basophils % (manual) 0 (0.0-2.0); Blast Cells 0; Eosinophils % (manual) 0 (0-7); Myelocytes % 0; Promyelocytes % 0; Reactive Lymphocytes 0
[2020-02-22 06:33] LABS: Albumin 2.4 g/dL (3.4-5.0); Anion Gap 15 (5-15); Blood Urea Nitrogen 41 mg/dL (7-18); Calcium 8.2 mg/dL (8.5-10.1); Carbon Dioxide 22 mmol/L (21-32); Chloride 100 mmol/L (98-107); Glucose 250 mg/dL (74-106); Potassium 5.2 mmol/L (3.5-5.1); Sodium 137 mmol/L (136-145)
[2020-02-22 06:36] LABS: Alanine Aminotransferase 81 U/L (16-61); BUN/Creatinine Ratio 25.5; GFR African American 58 mL/min; GFR Non-African American 48 mL/min
[2020-02-22] MEDS: ALBUTEROL SULF 2.5 MG/0.5ML(0.5%) NEB SOLN NEB SCH ×5 (06:40→21:56)
[2020-02-22] MEDS: IPRATROPIUM BROM 0.5 MG/2.5ML INH SOL NEB SCH ×5 (06:40→21:56)
[2020-02-22 06:43] LABS: Alkaline Phosphatase 76 U/L (45-117); Aspartate Aminotransferase 26 U/L (15-37); Bilirubin, Total 0.5 mg/dL (0.2-1.0); Total Protein 5.5 g/dL (6.4-8.2)
[2020-02-22] MEDS: SODIUM CHLORIDE 0.9% 1,000 ML IV SCH ×2 (07:25→15:39)
[2020-02-22 07:36] LABS: Band Neutrophils % (manual) 3; Lymphocytes % (manual) 5 (10.0-50.0); Metamyelocytes % 2; Monocytes % (manual) 6 (0-12)
[2020-02-22 09:00] VITALS: BP 149/81
[2020-02-22] MEDS: methylPREDNISolone SOD SUCC 40 MG/ML VL IV SCH ×2 (09:21→22:52)
[2020-02-22] MEDS: PANTOPRAZOLE 40 MG TAB PO SCH (09:22)
[2020-02-22] MEDS: FUROSEMIDE 40 MG/4 ML VIAL IV SCH (09:22)
[2020-02-22] MEDS: METOPROLOL TARTRATE 25 MG TAB PO SCH ×2 (09:22→22:54)
[2020-02-22] MEDS: SODIUM CHLOR 0.9% PF (SALINE LOCK) 10ML VIAL/SYR IV SCH ×2 (09:23→22:52)
[2020-02-22] MEDS: levoFLOXacin 500MG 100 ML IV SCH (09:23)
[2020-02-22] MEDS: VANCOMYCIN 1GM/250ML 250 ML IV SCH ×2 (11:10→21:40)
[2020-02-22 13:00] VITALS: BP 125/86
[2020-02-22 16:55] VITALS: BP 133/73
[2020-02-22 18:16] VITALS: BP 133/73
[2020-02-22 22:00] VITALS: BP_SYST 124; BP_SYST 125; BP_DIAS 71; BP_DIAS 77
[2020-02-23] MEDS: IPRATROPIUM BROM 0.5 MG/2.5ML INH SOL NEB SCH ×4 (02:03→13:35)
[2020-02-23] MEDS: ALBUTEROL SULF 2.5 MG/0.5ML(0.5%) NEB SOLN NEB SCH ×4 (02:03→13:35)
[2020-02-23 05:00] VITALS: BP 134/78
[2020-02-23] MEDS: ACCU-CHEK COMFORT CURVE STRIP VI SCH ×2 (05:28→12:18)
[2020-02-23] MEDS: VANCOMYCIN 1GM/250ML 250 ML IV SCH (05:33)
[2020-02-23] MEDS: InsuLIN REG 1unit/0.01ml Soln (100units/ml) SC SCH ×2 (05:35→12:18)
[2020-02-23 05:44] LABS: Hematocrit 47.1 % (41.0-53.0); Hemoglobin 15.4 g/dL (13.5-17.5); Mean Corpuscular Hemoglobin 31.4 pg (28.0-32.0); Mean Corpuscular Hgb Conc. 32.8 g/dL (32.0-36.0); Mean Corpuscular Volume 95.6 fL (80.0-100.0); Platelet Count (auto) 199 10^3/uL (140-450); Red Blood Cells 4.92 10^6/uL (4.5-5.90); Red Cell Distribution Width 14.8 % (11.8-14.3); White Blood Cell 18.6 10^3/uL (4.4-10.8)
[2020-02-23 06:02] LABS: Calcium 7.9 mg/dL (8.5-10.1); Potassium 4.5 mmol/L (3.5-5.1)
[2020-02-23 06:05] LABS: BUN/Creatinine Ratio 24.1
[2020-02-23 06:20] LABS: Band Neutrophils % (manual) 0; Basophils % (manual) 0 (0.0-2.0); Blast Cells 0; Eosinophils % (manual) 0 (0-7); Promyelocytes % 0; Reactive Lymphocytes 0
[2020-02-23 07:31] LABS: Lymphocytes % (manual) 4 (10.0-50.0); Metamyelocytes % 1; Monocytes % (manual) 7 (0-12); Myelocytes % 1
[2020-02-23 08:45] VITALS: BP 140/83
[2020-02-23] MEDS: methylPREDNISolone SOD SUCC 40 MG/ML VL IV SCH (09:17)
[2020-02-23] MEDS: FUROSEMIDE 40 MG/4 ML VIAL IV SCH (09:17)
[2020-02-23] MEDS: METOPROLOL TARTRATE 25 MG TAB PO SCH (09:18)
[2020-02-23] MEDS: PANTOPRAZOLE 40 MG TAB PO SCH (09:18)
[2020-02-23] MEDS: SODIUM CHLOR 0.9% PF (SALINE LOCK) 10ML VIAL/SYR IV SCH (09:18)
[2020-02-23] MEDS: levoFLOXacin 500MG 100 ML IV SCH (10:22)
[2020-02-23] MEDS: SODIUM CHLORIDE 0.9% 1,000 ML IV SCH (10:22)
[2020-02-23 11:06] VITALS: BP 140/83
[2020-02-23 12:00] VITALS: BP 127/85
== END 2020-02-23 13:53 | disposition home or self-care (01) | DRG 133 ==
LOC: EDBD 00:54 → ER 01:00 → TELE 01:01 → DOU IN ICU 14:30 → TELE-CENTR 02-17 15:33
PROVIDERS: ADMIT Nurse Practitioner; ATTEND Internal Medicine
PROC: 5A09357 Assistance with Respiratory Ventilation, Less than 24 Consecutive Hours, Continuous Positive Airway Pressure (ICD-10-PCS; 2020-02-04)
PROC: 05HA33Z Insertion of Infusion Device into Left Brachial Vein, Percutaneous Approach (ICD-10-PCS; 2020-02-04)
PROC: 5A09357 Assistance with Respiratory Ventilation, Less than 24 Consecutive Hours, Continuous Positive Airway Pressure (ICD-10-PCS; 2020-02-05)
PROC: 02HV33Z Insertion of Infusion Device into Superior Vena Cava, Percutaneous Approach (ICD-10-PCS; principal; 2020-02-12)
DX: J96.21 Acute and chronic respiratory failure with hypoxia (principal); J18.9 Pneumonia, unspecified organism; N17.0 Acute kidney failure with tubular necrosis; I10 Essential (primary) hypertension; E44.1 Mild protein-calorie malnutrition; J98.11 Atelectasis; D75.1 Secondary polycythemia; D72.829 Elevated white blood cell count, unspecified; F15.90 Other stimulant use, unspecified, uncomplicated; F17.210 Nicotine dependence, cigarettes, uncomplicated; R00.0 Tachycardia, unspecified; Z20.828 Contact with and (suspected) exposure to other viral communicable diseases; E66.01 Morbid (severe) obesity due to excess calories; Z68.27 Body mass index [BMI] 27.0-27.9, adult; Z79.52 Long term (current) use of systemic steroids; Z91.11 Patient's noncompliance with dietary regimen; Z79.899 Other long term (current) drug therapy; J44.0 Chronic obstructive pulmonary disease with (acute) lower respiratory infection; J44.1 Chronic obstructive pulmonary disease with (acute) exacerbation
CPT/HCPCS: 36415; 36569; 36600; 71045; 71046; 71275; 80048; 80053; 80202; 80307; 82565; 82728; 82805; 82962; 83605; 83615; 83880; 84484; 85007; 85025; 85027; 85610; 85730; 86703; 87040; 87070; 87205; 87804; 87880; 93005; 93306; 94640; 94660; 94667; 94668; 94760; 96360; A4615; G0378; J0696; J1815; J1956; J2405

== ENCOUNTER 2020-03-04 16:10 | Inpatient (IN) | payer MEDICAID ==
[~2020-03-04] VITALS: Ht 193 cm; Wt 98.6 kg
[~2020-03-04 16:10] MED LIST changes: +ALBU0.084 NEB; +ALBUAER3 IN; +FLUC200T50 PO; +LEVO-28 PO; +MET25T PO
[2020-03-04] MEDS ORDERED: SODIUM CHLORIDE 0.9% 1,000 ML IV ONE (16:19)
[2020-03-04] MEDS ORDERED: cefTRIAXone 1GM/50ML D5W 50 ML IV ONE (16:30)
[2020-03-04] MEDS ORDERED: diphenhdrAMINE HCL 50 MG/1 ML VL IV ONE (16:45)
[2020-03-04] MEDS ORDERED: FUROSEMIDE 20 MG/2 ML VIAL IV ONE (16:45)
[2020-03-04] MEDS ORDERED: methylPREDNISolone SOD SUCC 125 MG/2 ML VL IV ONE (16:45)
[2020-03-04 17:57] LABS: Hemoglobin 12.9 g/dL (13.5-17.5); Mean Corpuscular Hemoglobin 30.9 pg (28.0-32.0); Mean Corpuscular Volume 93.6 fL (80.0-100.0); Platelet Count (auto) 222 10^3/uL (140-450); Red Blood Cells 4.16 10^6/uL (4.5-5.90); Red Cell Distribution Width 15.1 % (11.8-14.3); White Blood Cell 13.2 10^3/uL (4.4-10.8)
[2020-03-04 18:09] LABS: Anion Gap 7 (5-15); Blood Urea Nitrogen 13 mg/dL (7-18); Calcium 8.1 mg/dL (8.5-10.1); Carbon Dioxide 25 mmol/L (21-32); Chloride 105 mmol/L (98-107); Glucose 83 mg/dL (74-106); Potassium 3.7 mmol/L (3.5-5.1); Sodium 137 mmol/L (136-145)
[2020-03-04 18:13] LABS: Basophils % (manual) 0 (0.0-2.0); Blast Cells 0; Promyelocytes % 0; Reactive Lymphocytes 0
[2020-03-04 18:18] LABS: Alanine Aminotransferase 70 U/L (16-61); Alkaline Phosphatase 90 U/L (45-117); Aspartate Aminotransferase 30 U/L (15-37); BUN/Creatinine Ratio 12.7; Bilirubin, Total 0.5 mg/dL (0.2-1.0); GFR African American 98 mL/min; GFR Non-African American 81 mL/min; Lactate Dehydrogenase 364 U/L (87-241); Total Protein 6.1 g/dL (6.4-8.2)
[2020-03-04 18:27] LABS: Urine Bacteria NONE SEEN /hpf (None Seen); Urine Blood Negative /uL (Negative); Urine Mucus FEW (None Seen); Urine Specific Gravity 1.014 (1.001-1.035); Urine WBC 3 /hpf (0 - 3)
[2020-03-04] MEDS ORDERED: ONDANSETRON HCL 4 MG/2 ML VIAL IV PRN (18:45)
[2020-03-04] MEDS ORDERED: MORPHINE SULF INJ 2 MG/ML SYRINGE 1ML IV PRN ×2 (18:45)
[2020-03-04] MEDS ORDERED: NITROGLYCERIN 0.4 MG SL TAB SL PRN (18:45)
[2020-03-04 19:00] LABS: INR 0.98 (0.9-1.15); Partial Thromboplastin Time 24.4 sec (23.0-31.2)
[2020-03-04] MEDS: PIPERACILLIN-TAZOB 3.375GM 100 ML IV SCH ×2 (19:09→23:44)
[2020-03-04 19:39] LABS: Band Neutrophils % (manual) 13; Eosinophils % (manual) 1 (0-7); Lymphocytes % (manual) 3 (10.0-50.0); Metamyelocytes % 2; Monocytes % (manual) 5 (0-12); Myelocytes % 2
[2020-03-04 22:20] VITALS: BP 137/85
--- NOTE | 2020-03-04 22:20 | NUR ---
Telemetry admit from ER to [facility]19 Unit ARANZA WILSON admitted to Telemetry unit. Patient oriented to LINK SALAS, primary RN, unit, room, bed, and unit policies regarding patient care and visiting hours. Patient now on continuous telemetry monitoring, tele box #16 and telemetry reading on arrival to unit is sinus tachycardia. Patient is alert and oriented x4. Patient denies shortness of breath or pain at this time. No sign/symptoms of distress noted or verbalized at this time. Instructed on plan of care and encouraged patient to call for assistance as needed, patient verbalized understanding. Bed is locked in lowest position, side rails x 2 are up, and call light is within reach.
[2020-03-04] MEDS: METOPROLOL TARTRATE 25 MG TAB PO SCH (23:44)
[2020-03-04] MEDS: ENOXAPARIN SOD 100 MG/1 ML SYRINGE SC SCH (23:44)
[2020-03-05] VITALS (7 sets, daily range): BP systolic 103–126; BP diastolic 61–87
--- NOTE | 2020-03-05 00:38 | NUR ---
MRSA Swab MRSA swab collected and sent to lab via bullet.
--- NOTE | 2020-03-05 00:45 | NUR ---
Covid-19 Test Result Notified by [employer] [facility] [employer] [facility] that patient's covid-19 test resulted negative.
--- NOTE | 2020-03-05 01:10 | NUR ---
Report Given Report given to Alvarez OCAMPO.
--- NOTE | 2020-03-05 01:20 | NUR ---
Transferred from Covid-19 Unit Patient transferred from covid-19 unit to room 221B. Patient transferred via wheelchair with all persona belongings accompanied by Alvarez OCAMPO. No sign/symptoms of distress noted upon departure. Patient care endorsed to Alvarez OCAMPO.
--- NOTE | 2020-03-05 01:21 | NUR ---
Patient transferred to room 221B. Assumed care of patient, who is alert and oriented x 4. Patient transferred to room 221B and placed into bed. Bed is in lowest position and locked. No S/S of distress/SOB or pain. Board updated. Instructed on POC and to call for assist PRN, will continue to monitor for changes Q1hr and PRN.
[2020-03-05] MEDS: PIPERACILLIN-TAZOB 3.375GM 100 ML IV SCH ×3 (06:03→18:47)
--- NOTE | 2020-03-05 10:32 | NUR ---
Dr. Rehman at bedside to discuss plan of care with patient. Order received, will document and carry out
[2020-03-05] MEDS: METOPROLOL TARTRATE 25 MG TAB PO SCH ×2 (10:48→21:45)
[2020-03-05] MEDS: ENOXAPARIN SOD 100 MG/1 ML SYRINGE SC SCH ×2 (10:48→21:46)
[2020-03-05] MEDS ORDERED: IOHEXOL 350 MG/ML 100ML IJ ONE ×2 (11:40→16:01)
--- NOTE | 2020-03-05 11:48 | NUR ---
Patient taken down to CT scan
--- NOTE | 2020-03-05 14:21 | NUR ---
Midline Placement: Patient educated on need for midline placement. All risks and benefits explained and all questions and concerns addresses prior to procedure. 18g/10cm midline inserted via left brachial vein using Ultrasound. Sterile technique utilized. Blood return obtained from lumen and flushed easily with NS using proper technique. Midline secured with saline lock; biodisc and occlusive dressing applied. Ange OCAMPO notified. Addendum: 03/05/20 at 1434 by LALO FLEMING RN Midline lot #[id number]
--- NOTE | 2020-03-05 16:17 | NUR ---
PATIENT TAKEN DOWN FOR CT ANGIO
--- NOTE | 2020-03-05 19:28 | NUR ---
Opening Shift Note Assumed care of patient, awake and alert x 4. No S/S of distress/SOB or pain. Bed is in lowest position and locked. Call light within reach. Board updated. Tele box number matches monitor and leads are in correct placement. Board updated. Heating pack placed under right arm and arm elevated to encourage reabsorption of contrast dye. Instructed on POC and to call for assist PRN, will continue to monitor for changes Q1hr and PRN.
--- NOTE | 2020-03-05 20:27 | NUR ---
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 Order placed: Solumedrol 60 mg IV q 8 hrs x 3 doses. Order repeated, confirmed, and placed.
[2020-03-05] MEDS: methylPREDNISolone SOD SUCC 125 MG/2 ML VL IV SCH (21:45)
--- NOTE | 2020-03-05 21:55 | NUR ---
Patient has signed AMA to smoke and has left via wheelchair to go downstairs. Patient aware that this si a smoke-free facility, has been educated on dangers of smoking (especially with his elevated heart rate), that patient assumes all risks associated while smoking, and that he must return to floor within 30 minutes. Patient accepted and signed AMA form.
--- NOTE | 2020-03-05 22:25 | NUR ---
Patient has returned to unit after using smoking AMA. Patient now in bed resting comfortably on 3 l min/NC.
[2020-03-06] MEDS: PIPERACILLIN-TAZOB 3.375GM 100 ML IV SCH ×4 (00:03→18:47)
[2020-03-06 05:00] VITALS: BP 141/74
[2020-03-06] MEDS: methylPREDNISolone SOD SUCC 125 MG/2 ML VL IV SCH ×2 (05:35→13:14)
[2020-03-06 08:00] VITALS: BP 139/89
[2020-03-06 09:04] VITALS: BP 139/89
[2020-03-06 10:39] LABS: Basophils # (auto) 0 10 ^3/uL (0-0.2); Basophils % (auto) 0.1 % (0.0-2.0); Eosinophils # (auto) 0 10 ^3/uL (0-0.8); Eosinophils % (auto) 0.1 % (0.0-7.0); Hematocrit 36.6 % (41.0-53.0); Hemoglobin 12.2 g/dL (13.5-17.5); Lymphocytes # (auto) 0.9 10 ^3/uL (0.4-5.4); Lymphocytes % (auto) 5.3 % (10.0-50.0); Mean Corpuscular Hemoglobin 31.1 pg (28.0-32.0); Mean Corpuscular Hgb Conc. 33.4 g/dL (32.0-36.0); Mean Corpuscular Volume 93.1 fL (80.0-100.0); Monocytes # (auto) 0.4 10 ^3/uL (0-1.3); Monocytes % (auto) 2.5 % (0.0-12.0); Neutrophils # (auto) 14.8 10 ^3/uL (1.6-8.6); Nucleated Red Blood Cells % 0.3 %; Platelet Count (auto) 250 10^3/uL (140-450); Red Blood Cells 3.93 10^6/uL (4.5-5.90); Red Cell Distribution Width 15.4 % (11.8-14.3); White Blood Cell 16.1 10^3/uL (4.4-10.8)
[2020-03-06 10:41] LABS: Calcium 8.3 mg/dL (8.5-10.1); Potassium 4.3 mmol/L (3.5-5.1)
[2020-03-06] MEDS: METOPROLOL TARTRATE 25 MG TAB PO SCH ×2 (10:42→22:21)
[2020-03-06] MEDS: ENOXAPARIN SOD 100 MG/1 ML SYRINGE SC SCH ×2 (10:43→22:22)
[2020-03-06 13:00] VITALS: BP 131/92
--- NOTE | 2020-03-06 13:38 | NUR ---
Patient went down stairs to smoke outside. Has AMA signed to smoke. Patient educated on smoking cessation.
[2020-03-06 17:06] VITALS: BP 168/101
--- NOTE | 2020-03-06 17:20 | NUR ---
LEFT MESSAGE WITH DR. BEATTY REGARDING PATIENTS ELEVATED BLOOD PRESSURE, AWAITING A RETURN CALL
[2020-03-06] MEDS ORDERED: hydrALAZINE HCL 20 MG/ML VL IV PRN (18:15)
--- NOTE | 2020-03-06 19:35 | NUR ---
Opening Shift Note Assumed care of patient, awake and alert. Patient is sitting at bedside while talking on the phone with family. Patient is on RA. No S/S of distress/SOB or pain. Bed is locked in lowest position with call light within reach. Instructed on POC and to call for assist PRN, will continue to monitor for changes Q1hr and PRN.
[2020-03-06 22:05] VITALS: BP 135/99
[2020-03-07 05:00] VITALS: BP 134/86
[2020-03-07] MEDS: PIPERACILLIN-TAZOB 3.375GM 100 ML IV SCH ×4 (06:00→18:00)
[2020-03-07 08:00] VITALS: BP 136/78
[2020-03-07 09:00] VITALS: BP 136/78
[2020-03-07] MEDS: METOPROLOL TARTRATE 25 MG TAB PO SCH ×2 (09:02→22:00)
[2020-03-07] MEDS: ENOXAPARIN SOD 100 MG/1 ML SYRINGE SC SCH ×2 (09:02→22:00)
--- NOTE | 2020-03-07 12:44 | NUR ---
Est energy needs 0779-6885 kcal (20-22 kcal/kg BW 96.5kg) Est protein needs 77-97g (0.8-1g/kg BW 96.5kg) Will reassess prn. Addendum: 03/07/20 at [address] Amended: Links added.
[2020-03-07 13:00] VITALS: BP 118/88
[2020-03-07 17:00] VITALS: BP 143/92
--- NOTE | 2020-03-07 19:25 | NUR ---
Opening Shift Note Assumed care of patient, awake and alert. Patient is sitting at bedside watching TV. Patient is on RA. No S/S of distress/SOB or pain. Bed is locked in lowest position with call light within reach. Instructed on POC and to call for assist PRN, will continue to monitor for changes Q1hr and PRN.
[2020-03-07 21:41] VITALS: BP 144/76
[2020-03-08] VITALS (7 sets, daily range): BP systolic 116–133; BP diastolic 61–86
[2020-03-08] MEDS: PIPERACILLIN-TAZOB 3.375GM 100 ML IV SCH ×4 (06:00→17:26)
--- NOTE | 2020-03-08 06:55 | NUR ---
Patient went down stairs to smoke outside. Has AMA signed to smoke.
--- NOTE | 2020-03-08 07:20 | NUR ---
PATIENT HAS RETURNED TO ROOM.
--- NOTE | 2020-03-08 07:40 | NUR ---
Opening Shift Note Assumed care of patient, awake and alert. No S/S of distress/SOB or pain. Instructed on POC and to call for assist PRN, will continue to monitor for changes Q1hr and PRN. Bed locked in lowest position with two side rails up and call light in reach.
[2020-03-08] MEDS: METOPROLOL TARTRATE 25 MG TAB PO SCH ×2 (10:47→21:57)
[2020-03-08] MEDS: ENOXAPARIN SOD 100 MG/1 ML SYRINGE SC SCH ×2 (10:48→21:57)
--- NOTE | 2020-03-08 19:44 | NUR ---
Opening Shift Note Received report and assumed care of patient. Patient is awake and alert. No signs or symptoms of distress noted. Instructed patient on plan of care and to call for assistance as needed. Will continue to monitor.
[2020-03-09] MEDS: PIPERACILLIN-TAZOB 3.375GM 100 ML IV SCH ×5 (00:26→16:31)
[2020-03-09 04:45] VITALS: BP 126/64
[2020-03-09 07:28] LABS: Albumin 2.2 g/dL (3.4-5.0); Calcium 8.1 mg/dL (8.5-10.1)
[2020-03-09 07:31] LABS: BUN/Creatinine Ratio 10.1; Bilirubin, Total 0.2 mg/dL (0.2-1.0); Total Protein 6.1 g/dL (6.4-8.2)
[2020-03-09 08:00] VITALS: BP 118/68
--- NOTE | 2020-03-09 08:19 | NUR ---
Assessment Patient is a 54-year-old male who is alert and oriented. Prior to admission patient lived with his sister Charissa and functioned independently. Patient informed me can care for his own ADLs. Per patient he will return home to his prior living arrangements post discharge and Charissa will transport him home. Patient informed me he has home oxygen for home use. Advised patient there is a social service consult Resources for heavy alcohol use. Patient refused resource stating he does not drink alcohol. Informed patient he has a right to participate in all discharge planning. Patient verbalized understanding. Addendum: 03/09/20 at 0822 by GISSEL العلي Amended: Links added.
[2020-03-09 09:00] VITALS: BP_SYST 118; BP_SYST 134; BP_DIAS 68; BP_DIAS 96
[2020-03-09] MEDS: METOPROLOL TARTRATE 25 MG TAB PO SCH (10:15)
[2020-03-09] MEDS: ENOXAPARIN SOD 100 MG/1 ML SYRINGE SC SCH (10:15)
[2020-03-09 13:00] VITALS: BP 125/69
[2020-03-09 16:24] VITALS: BP 125/69
[2020-03-09 16:57] VITALS: BP 129/66
--- NOTE | 2020-03-09 18:32 | NUR ---
MIDLINE REMOVED INTACT, PRESSURE DRESSING APPLIED. PATIENT SIGNED ALL DISCHARGE PAPERS AND IS WAITING FOR FAMILY TO RETURN WITH HIS OXYGEN. PATIENT HAS BEEN AMBULATING DOWN STAIRS ALL DAY WITH NO O2 AND NOW STATES HE WOULD LIKE HIS FAMILY TO BRING IT. ALL DISCHARGE PROTOCOL IS DONE PATIENT IS ONLY WAITING FOR RIDE TO RETURN WITH OXYGEN. WILL ENDORSE TO [facility] NURSE.
--- NOTE | 2020-03-09 19:55 | NUR ---
Discharge instructions given as ordered. Encourage to follow up with PMD as instructed. All questions and concerns addressed. Patient verbalized understanding. Medication reconciliation form completed and copy given to patient. Home medications held in Pharmacy returned to patient, and needed vaccines given. IV removed with catheter intact, pressure dressing applied. Telemetry unit returned to ICU. Patient taken to vehicle via wheelchair with all personal belongings, accompanied by staff and family member. No distress noted at time of departure.
== END 2020-03-09 19:55 | disposition home or self-care (01) | DRG 720 ==
LOC: ER 16:10 → EDBD 16:10 → TELE 16:11 → TELE-EAST 22:22 → TELE-CENTR 03-05 01:33
PROVIDERS: ADMIT Internal Medicine; ATTEND Internal Medicine
DX: A41.9 Sepsis, unspecified organism (principal); J96.21 Acute and chronic respiratory failure with hypoxia; J18.9 Pneumonia, unspecified organism; I27.20 Pulmonary hypertension, unspecified; E86.0 Dehydration; J43.9 Emphysema, unspecified; Z20.828 Contact with and (suspected) exposure to other viral communicable diseases; Z79.899 Other long term (current) drug therapy; F17.210 Nicotine dependence, cigarettes, uncomplicated; I10 Essential (primary) hypertension
CPT/HCPCS: 36415; 71045; 71275; 73060; 80048; 80053; 81001; 82728; 83605; 83615; 83880; 84484; 85007; 85025; 85027; 85379; 85610; 85730; 86141; 87040; 87081; 87426; 93005; 96365; 96375; 99291; G0378; J0696; J2543